=== PATIENT | female | born 1950 | race Caucasian/White ===

== ENCOUNTER → 2020-05-25 12:40 | Outpatient (CLI) | payer MEDICARE, SELFPAY ==
--- NOTE | ~2020-05-25 | MM_ITS ---
EXAMINATION: MM screening yael BI w akiko HISTORY: Screening TECHNIQUE: Craniocaudal and mediolateral oblique 3-D tomosynthesis images were obtained and synthetic 2-D images were generated. CAD analysis was submitted and interpreted. COMPARISON: Comparison to multiple prior studies sequentially, with oldest reviewed study dated 01/25. BREAST PARENCHYMAL COMPOSITION: The breasts are almost entirely fatty. FINDINGS: There is no evidence of suspicious mass, calcification, or architectural distortion to sugg est malignancy in either breast. There has been no suspicious interval change. IMPRESSION: 1. No mammographic evidence of malignancy. 2. Recommend routine screening mammography in one year. BI-RADS Category 1: Negative Reviewed, dictated and finalized at [facility]
== END ==
PROVIDERS: PCP Family Medicine; Visit Provider Physician Assistant Medical
DX: Z12.31 Encounter for screening mammogram for malignant neoplasm of breast (principal)
CPT/HCPCS: 77063; 77067

== ENCOUNTER 2020-07-08 08:16 | Outpatient (CLI) | payer MEDICARE, SELFPAY ==
--- NOTE | 2020-07-08 08:52 | ECG_ITS ---
SINUS BRADYCARDIA DELAYED PRECORDIAL R/S TRANSITION BASELINE ARTIFACT- I, II, III, AVR, AVL, AVF BORDERLINE ECG Electronically Signed On 07-08-2020 9:20:16 CDT by Lorenzo Barraza D.O. COMPARED TO ECG 07/30/2018 14:22:17 SINUS BRADYCARDIA NOW PRESENT MTDD
[2020-07-08 09:51] LABS: Basophils Percent Auto 0.6 % (0.2-1.2); Eosinophils Absolute Auto 0.2 K/mm3 (0-0.3); Eosinophils Percent Auto 3.3 % (0-4.4); Hematocrit 39.4 % (37.0-47.0); Hemoglobin 13.5 g/dL (12.0-15.0); Immature Granulocyte Absolute 0.01 K/mm3 (0.00-0.031); Immature Granulocyte Percent A 0.2 % (0-0.5); Lymphocytes Absolute Auto 1.69 K/mm3 (0.9-3.2); Lymphocytes Percent Auto 31.1 % (18.3-44.2); Mean Corpuscular HGB Conc 34.3 g/dl (32-36); Mean Corpuscular Hemoglobin 33.3 pg (26-34); Mean Corpuscular Volume 97.3 fl (80-100); Mean Platelet Volume 10.6 fl (7.4-10.4); Monocytes Absolute Auto 0.4 K/mm3 (0.1-0.6); Monocytes Percent Auto 7.7 % (2.6-8.5); Neutrophils Absolute Auto 3.1 K/mm3 (1.3-6.7); Neutrophils Percent Auto 57.1 % (45.5-73.1); Platelet Count Result 186 k/mm3 (150-375); Red Blood Count 4.05 M/mm3 (4.2-5.4); Red Cell Distribution Width 12.7 % (11.5-14.5); White Blood Count 5.4 K/mm3 (4.5-10.0)
[2020-07-08 10:02] LABS: Anion Gap 5 mmol/L (8-16); Blood Urea Nitrogen 19 mg/dL (7-17); Calcium 9.3 mg/dL (8.4-10.2); Carbon Dioxide 32 mmol/L (22-30); Chloride 102 mmol/L (98-107); Estimated Glomerular Filt Rate > 60; Glucose 93 mg/dL (65-105); Potassium 4.3 mmol/L (3.4-5.0); Sodium 139 mmol/L (137-145)
== END 2020-07-08 08:17 | disposition home or self-care (01) ==
PROVIDERS: PCP Family Medicine; Visit Provider Orthopaedic Surgery
DX: M20.5X1 Other deformities of toe(s) (acquired), right foot (principal); M89.8X7 Other specified disorders of bone, ankle and foot
CPT/HCPCS: 36415; 80048; 85025; 93005

== ENCOUNTER 2020-07-08 08:44 | Outpatient (CLI) | payer MEDICARE, SELFPAY ==
[2020-07-08 10:02] LABS: Alanine Aminotransferase 17 U/L (4-35); Albumin Level 4.5 g/dL (3.5-5.1); Alkaline Phosphatase 64 U/L (38-126); Anion Gap 5 mmol/L (8-16); Aspartate Amino Transferase 30 U/L (14-36); Bilirubin,Total 0.6 mg/dL (0.2-1.3); Blood Urea Nitrogen 20 mg/dL (7-17); Calcium 9.2 mg/dL (8.4-10.2); Carbon Dioxide 32 mmol/L (22-30); Chloride 103 mmol/L (98-107); Cholesterol 195 mg/dL (0-200); Estimated Glomerular Filt Rate > 60; Glucose 94 mg/dL (65-105); HDL Direct 61 mg/dL; Potassium 4.3 mmol/L (3.4-5.0); Sodium 140 mmol/L (137-145); Triglycerides 122 mg/dL (<150)
[2020-07-08 10:12] LABS: LDL Cholesterol Direct 104 mg/dL
[2020-07-08 10:29] LABS: Hemoglobin A1C 5.3 % (<5.7)
[2020-07-08 10:46] LABS: Free T4 Free Thyroxine 0.99 ng/mL (0.78-2.19)
== END 2020-07-08 08:45 | disposition home or self-care (01) ==
LOC: ANHLAB 08:49
PROVIDERS: PCP Family Medicine; Visit Provider Family Medicine
DX: E03.9 Hypothyroidism, unspecified (principal); E78.5 Hyperlipidemia, unspecified; I10 Essential (primary) hypertension; E88.81 Metabolic syndrome and other insulin resistance
CPT/HCPCS: 36415; 80053; 80061; 83036; 84439; 84443

== ENCOUNTER → 2020-07-11 01:50 | Outpatient (CLI) | payer MEDICARE, SELFPAY ==
[2020-07-11 19:04] LABS: SARS-CoV-2 RNA PCR Negative
== END ==
PROVIDERS: PCP Family Medicine; Visit Provider Orthopaedic Surgery
DX: Z01.812 Encounter for preprocedural laboratory examination (principal); Z20.822 Contact with and (suspected) exposure to COVID-19
CPT/HCPCS: C9803; U0003; U0005

== ENCOUNTER 2020-07-14 01:45 | Day surgery (SDC) | payer MEDICARE, SELFPAY ==
[2020-07-01 12:06] VITALS: BMI 38.6
--- NOTE | 2020-07-13 13:19 | WPDANESEPPF ---
Anes - Initial Pre Proc Eval Procedure: Operation Date: 07/14/20 08:00 Proposed Procedures p Right Second Claw Toe Correction With Metatarsal Osteotomy, Soft Tissue Reconstruction, Excision Of Exostosis - Rafita Calles MD Date/Time: 07/13/20 13:19 Surgeon: Rafita Calles MD Pre Op Diagnosis: Right 2nd claw toe, right foot exostosis Patient Data Age: 70 Gender: F Height: 5 ft 3 in Weight: 98.9 kg Allergies Allergy/AdvReac Type Severity Reaction Status Date / Time nabumetone Allergy Mild vision Verified 07/14/20 06:37 changes Home Medications Medication Instructions Recorded Confirmed Type alendronate 70 mg tablet 70 mg PO WEEKLY #13 tablet 09/16/19 07/14/20 Rx rosuvastatin 10 mg tablet 10 mg PO DAILY #90 tablet 12/28/19 07/14/20 Rx acetaminophen 300 mg-codeine 30 mg 1 tablet PO Q8H PRN #30 tablet 02/12/20 07/01/20 Rx tablet melatonin 10 mg capsule 10 mg PO PRN PRN cap 02/12/20 07/14/20 History methotrexate sodium 2.5 mg tablet 17.5 mg PO WEEKLY tablet 02/12/20 07/14/20 History lisinopril 10 mg tablet See Rx Instructions .ROUTE 02/29/20 07/14/20 Rx .COMPLEX #90 tablet levothyroxine 100 mcg tablet 100 mcg PO DAILY #90 tablet 03/16/20 07/14/20 Rx hydrochlorothiazide 25 mg tablet See Rx Instructions .ROUTE 06/10/20 07/14/20 Rx .COMPLEX #90 tablet aspirin [Adult Low Dose Aspirin] 162 mg PO DAILY 07/01/20 07/14/20 History citalopram 20 mg PO QAM 07/01/20 07/14/20 History diphenhydramine-acetaminophen 25 - 500 ml PO PRN PRN 07/01/20 07/14/20 History [Tylenol PM] folic acid 5 mg PO WEEKLY 07/01/20 07/14/20 History meloxicam 15 mg tablet 15 mg PO DAILY #90 tablet 07/08/20 07/14/20 Rx Patient hx anesthesia problems: post op nausea/vomiting Family hx anesthesia problems: none PMFSH Past Medical History Medical History (Updated 07/13/20 @ 13:19 by Arnaud Braden MD) Arthritis Arthritis of foot, right, degenerative Clawtoe, acquired Essential (primary) hypertension Exostosis of right foot Ganglion cyst (~1971) History of chicken pox History of measles History of mumps Hypothyroidism (acquired) Mixed hyperlipidemia Obesity JALIL (obstructive sleep apnea) Unspecified sleep apnea Surgical History Surgical History History of adenoidectomy (~1958) History of back surgery (~2012) History of bunionectomy 1997? History of cataract surgery History of tonsillectomy (~1958) History of tubal ligation (~1979) Family History Family History Mother , age 78 Hypertension Kidney failure Congestive heart failure Father , age 76 Diabetes mellitus Hypertension Lung cancer Alcoholism Heart disease Grandparent Breast cancer Heart disease Daughter Smoker Son Smoker Other Carcinoma of colon Family history of arthritis Social History Social History Smoking status: Never smoker Alcohol intake: current Drinks per week: 2 Living arrangements: with family Spiritual care concerns: No Anes - Eval Final PreProcedure Day of Procedure 07/13/20 13:19 Patient weight: morbidly obese Heart: regular rate and rhythm Lungs: clear to auscultation Airway: Mallampati scale class III Neurological: alert and oriented Last oral intake: >/= 8 hours ASA classification: III Emergent: no Anesthesia type and monitoring: general LMA and standard monitoring Informed Consent: The patient's anesthetic plan and its attendant risks and benefits were discussed with the patient/family/POA. Questions were solicited and answers provided to the satisfaction of the patient/family/POA.
[2020-07-14] VITALS (8 sets, daily range): BP systolic 125–139; BP diastolic 55–74; PULSE 63–88; RESP 13–18; TEMP 36–36.2; O2SAT 98–100
--- NOTE | ~2020-07-14 | XR_ITS ---
EXAMINATION: XR surgery orthopedic DATE: 07/14/2020 10:37 INDICATION: Follow-up to surgery at the right foot. TECHNIQUE: 3 fluoroscopic spot images of the right forefoot were obtained during procedure performed by Dr. Calles. Radiologist was not present for the imaging or procedure. The amount of fluoroscopy t layla used during this procedure was 0.1 minutes. COMPARISON: 06/15/2020 FINDINGS: Interval osteotomy and screw fixation at the neck of the right second metatarsal. Round lucency at th e base of the second proximal phalanx likely represents a suture anchor tract. Postoperative change o f prior bunionectomy with irregular cortical margins at the medial head of the first metatarsal. Poly articular osteoarthritis, mild at the first metatarsophalangeal joint and moderate severity at multip le interphalangeal joints. No fracture. IMPRESSION: 1. Postoperative changes at the head of the second metatarsal and base of the second proximal phalanx likely for reported claw toe correction. See procedure note for further detail. 2. Mild to moderate polyarticular osteoarthritis in the forefoot. Reviewed, dictated and finalized at location A. IMPRESSION: 1. Postoperative changes at the head of the second metatarsal and base of the s econd proximal phalanx likely for reported claw toe correction. See procedure n ote for further detail. 2. Mild to moderate polyarticular osteoarthritis in the forefoot.
[2020-07-14] MEDS: ACETAMINOPHEN 500 MG TABLET 1000 MG PO (06:46)
[2020-07-14] MEDS: LACTATED RINGERS 1,000 ML 30 ML IV CONT ×2 (07:23→10:47)
[2020-07-14] MEDS: SCOPOLAMINE 1.5 MG PATCH TRANSDERM (07:25)
--- NOTE | 2020-07-14 08:39 | WPDHPUPDATE1 ---
History and Physical Update Update Date/Time: 07/14/20 08:39 History and Physical has been reviewed, including an updated exam of the patient. There are NO changes in the patient's condition. Covid test negative. Risks, benefits, and alternatives have been discussed and questions answered. Patient agrees to proceed with procedure.
[2020-07-14] MEDS: ceFAZolin 2 GM/D5W 50 ML 2 GM/50 ML BAG IVPB (08:42)
[2020-07-14] MEDS: BUPIVACAINE HCL 0.5% PF 30 ML VIAL INFILTRATE (09:11)
--- NOTE | 2020-07-14 11:13 | PM.PROC ---
Procedure Note - Detailed Date of procedure: 07/14/20 Pre-op diagnosis: Right 2nd claw toe, right foot exostosis Post-op diagnosis: same Procedure performed: Right 2nd metatarsal osteotomy, clawtoe correction with soft tissue reconstruction, excision of exostosis Description of procedure: Patient is a 70-year-old woman with a right 2nd crossover toe deformity with evidence of plantar plate rupture on x-ray as well as metatarsalgia and excessively long 2nd ray. Medial exostosis from the medial cuneiform which causes pain with shoe wear. Patient has failed conservative treatment and desires operative treatment. Risks, benefits and alternatives discussed with the patient. Questions answered. Patient would like to proceed with surgery. What was done: After informed consent was given the operative extremity was marked in the preoperative holding area. Patient received intravenous antibiotics. She was brought to the operating room where she underwent a general anesthetic by the anesthesia team. Time-out performed confirming the patient, site of the surgery, operative plan. The right lower extremity was then prepped and draped in usual sterile surgical fashion using ChloraPrep skin solution. Foot and ankle exsanguinated and a calf tourniquet inflated to 225 mmHg. Dorsal approach utilized and longitudinal incision made with 15 blade knife centered over the 2nd metatarsophalangeal joint. Hemostasis controlled with electrocautery. Extensor tendon retracted laterally. Dorsal capsulotomy performed. Synovitis and joint fluid noted in the joint. This was sharply removed and suctioned out. Collaterals released off of the proximal phalanx. Joint inspected and a plantar plate rupture noted. Proximal plantar plate released with the McGlamry elevator. Plantar condyle removed with a rongeur. Sagittal saw used to make transverse osteotomy in the metatarsal head. This allowed the head to shorten to correct the excessive length of the metatarsal. Positioning verified with image intensification. Fixation achieved with a 2.0 mm twist off screw from Arthrex set. Plantar plate reconstruction then performed. Plantar plate was noted to be thin and attenuated secondary to patient's age. Reconstruction with internal brace was indicated. Drill holes placed in the proximal phalanx and suture tape brought up through the drill holes. With the toe in corrected position suture tape was then passed from plantar to dorsum through the midportion of the 2nd metatarsal. Fixation of the suture tape was achieved with the bio tenodesis screw distally in the PushLock anchor proximally. Image intensification confirmed final alignment of the toe at the metatarsophalangeal joint. Visualization clinically showed good alignment of the toe. Wound thoroughly irrigated with antibiotic solution. Capsule repaired with 3 0 Monocryl interrupted suture. Skin repaired with 4 0 nylon interrupted suture. Exostosis then addressed. A longitudinal incision made with 15 blade knife over the medial cuneiform. Hemostasis controlled electrocautery. Soft tissue elevated off of the large exostosis which was present. Osteotome used to remove the exostosis and smoothed with a rongeur. Wound thoroughly irrigated. Subcutaneous tissue repaired with 3 Monocryl interrupted suture and skin repaired with for 0 nylon running suture. Sterile dressing applied. Tourniquet released. Good capillary refill noted in the toe. Patient awoke from anesthesia, extubated and taken to the recovery room in stable condition. All sponge, needle, instrument counts correct at the end of the case. Implants: Arthrex 2.0 mm twist off screw 12 mm length x1, 3.0 mm bio tenodesis screw x1, 2.5 mm PushLock anchor x1 Anesthesia: GLMA Surgeon: Rafita Calles MD Radio Assembler: sales assistants and salespersons Estimated blood loss (mL): 5 Tourniquet time (min): 95 Drains: No Packing: No Pathology: none sent Complications: None Condition: stable Disposition: PACU
== END 2020-07-14 12:55 | disposition home or self-care (01) ==
PROVIDERS: PCP Family Medicine; Visit Provider Orthopaedic Surgery
PROC: (CPT 28750; principal; 2020-07-14 08:00)
DX: M20.5X1 Other deformities of toe(s) (acquired), right foot (principal); M25.774 Osteophyte, right foot; M77.41 Metatarsalgia, right foot; M65.871 Other synovitis and tenosynovitis, right ankle and foot; I10 Essential (primary) hypertension; E78.2 Mixed hyperlipidemia; G47.33 Obstructive sleep apnea (adult) (pediatric); E66.01 Morbid (severe) obesity due to excess calories; Z68.39 Body mass index [BMI] 39.0-39.9, adult
CPT/HCPCS: 28104; 28308; 28313; 36415; 80048; 80053; 80061; 83036; 84439; 84443; 85025; 93005; A9270; C1713; C9803; J0690; J1100; J2405; J2704; J3010; J7120; U0003; U0005

== ENCOUNTER 2020-11-11 16:45 | Outpatient (CLI) | payer MEDICARE, SELFPAY ==
--- NOTE | ~2020-11-11 | MR_ITS ---
EXAMINATION: MR lumbar spine wo/w con DATE: 11/11/2020 17:47 INDICATION: Lumbar radiculopathy. TECHNIQUE: Magnetic resonance imaging (MRI) of the lumbar spine was performed without and with 20 mL MultiHance intravenous contrast. Sequences included sagittal T2-weighted FSE, sagittal T2-weighted FS FSE, and sagittal and axial T1-weighted FSE. Postcontrast sequences included axial T2-weighted FSE a nd axial and sagittal T1-weighted FS FSE. COMPARISON: Lumbar spine MRI 08/21/2016 FINDINGS: There is 5 degrees levocurvature of lumbar spine. There is 6 mm anterolisthesis of L4 on L5 . There are changes of anterior and posterior fusion procedures at L4-L5 with healed interbody bone g raft and pedicle screws. There is severely decreased disc height at L3-L4 and L5-S1 with endplate rem odeling. The distal spinal cord signal intensity is normal. The conus medullaris is at T12-L1. The fo llowing disc levels are specifically discussed: L1-L2: The disc is bulging. There is mild bilateral facet joint osteoarthritis. There is no neural fo raminal stenosis. There is mild central canal stenosis. L2-L3: The disc does not extend beyond the endplate margin. There is mild bilateral facet joint osteo arthritis. There is no neural foraminal stenosis. There is no central canal stenosis. L3-L4: The disc is bulging. There is severe bilateral facet joint osteoarthritis. There is moderate b ilateral neural foraminal stenosis. There is mild central canal stenosis. L4-L5: There is no facet joint hypertrophy. There is no neural foraminal stenosis. There is no centra l canal stenosis. There is posterior decompression. L5-S1: The disc is bulging and has an annular fissure. There is severe bilateral facet joint osteoart hritis. There is moderate right and mild left neural foraminal stenosis. There is mild central canal stenosis. IMPRESSION: 1. Severe lumbar spondylosis with interval worsening of right neural foraminal stenosis at L5-S1. 2. Anterior and posterior fusion procedures at L4-L5. Reviewed, dictated and finalized at location [facility].
[2020-11-11 17:11] LABS: Estimated Glomerular Filt Rate > 60
== END 2020-11-11 16:46 | disposition home or self-care (01) ==
PROVIDERS: PCP Family Medicine; Visit Provider Nurse Practitioner Family
DX: M54.5 Low back pain (principal); M47.816 Spondylosis without myelopathy or radiculopathy, lumbar region; M48.07 Spinal stenosis, lumbosacral region; Z98.1 Arthrodesis status
CPT/HCPCS: 72158; A9577

== ENCOUNTER 2021-06-05 00:14 | Day surgery (SDC) | payer MEDICARE, SELFPAY ==
[2021-05-26 09:41] VITALS: BMI 39.0
[2021-06-05 09:55] VITALS: BP 136/63; PULSE 70; RESP 16; TEMP 35.8; O2SAT 97; BMI 38.2
[2021-06-05] MEDS: LACTATED RINGERS 1,000 ML 150 ML IV CONT (10:00)
--- NOTE | 2021-06-05 10:01 | WPDANESEPPF ---
Anes - Initial Pre Proc Eval Procedure: Operation Date: 06/05/21 11:00 Proposed Procedures p Screening Colonoscopy - Nilesh Kowalski MD Date/Time: 06/05/21 10:01 Surgeon: Nilesh Kowalski MD Pre Op Diagnosis: family hx of colon polyps Patient Data Age: 71 Gender: F Height: 1.6 m Weight: 97.8 kg Last Vital Signs Temp 35.8 C L 06/05/21 09:55 Pulse 70 06/05/21 09:55 Resp 16 06/05/21 09:55 BP 136/63 06/05/21 09:55 Pulse Ox 97 06/05/21 09:55 Allergies Allergy/AdvReac Type Severity Reaction Status Date / Time nabumetone Allergy Mild vision Verified 06/05/21 09:53 changes Home Medications Medication Instructions Recorded Confirmed Type melatonin 10 mg capsule 10 mg PO PRN PRN cap 02/12/20 06/05/21 History hydrochlorothiazide 25 mg tablet See Rx Instructions .ROUTE 06/10/20 06/05/21 Rx .COMPLEX #90 tablet aspirin 162 mg PO DAILY 07/01/20 06/05/21 History citalopram 20 mg PO QAM 07/01/20 06/05/21 History diphenhydramine-acetaminophen 25 - 500 ml PO PRN PRN 07/01/20 06/05/21 History folic acid 5 mg PO WEEKLY 07/01/20 06/05/21 History alendronate 70 mg tablet 70 mg PO WEEKLY #13 tablet 08/09/20 06/05/21 Rx methotrexate sodium 2.5 mg tablet See Rx Instructions .ROUTE 08/15/20 06/05/21 Rx .COMPLEX #90 tablet tramadol 50 mg tablet 50 mg PO Q6H PRN #30 tablet 02/15/21 06/05/21 Rx lisinopril 10 mg tablet See Rx Instructions .ROUTE 02/27/21 06/05/21 Rx .COMPLEX #90 tablet levothyroxine 100 mcg tablet 100 mcg PO DAILY #90 tablet 03/13/21 06/05/21 Rx rosuvastatin 10 mg tablet See Rx Instructions .ROUTE 03/27/21 06/05/21 Rx .COMPLEX #90 tablet metformin 500 mg tablet,extended See Rx Instructions .ROUTE 04/19/21 06/05/21 Rx release 24 hr .COMPLEX #90 tablet meloxicam 15 mg tablet 15 mg PO DAILY #90 tablet 04/24/21 06/05/21 Rx Lacto.acidophilus-Bif.animalis 1 cap PO DAILY 05/26/21 06/05/21 History [Daily Probiotic] acetaminophen [Tylenol Arthritis] 650 mg PO Q12H PRN 05/26/21 06/05/21 History famotidine [Pepcid] 20 mg PO DAILY PRN 05/26/21 06/05/21 History sennosides [senna] 8.6 mg PO DAILY PRN 05/26/21 06/05/21 History turmeric root extract 500 mg PO DAILY 05/26/21 06/05/21 History Patient hx anesthesia problems: none Family hx anesthesia problems: none Results Review: All pre-operative results and documents have been reviewed as part of the pre-operative evaluation. [facility] Past Medical History Medical History Arthritis Arthritis of foot, right, degenerative Clawtoe, acquired Essential (primary) hypertension Exostosis of right foot Ganglion cyst (~1971) History of chicken pox History of measles History of mumps Hypothyroidism (acquired) Mixed hyperlipidemia Obesity JALIL (obstructive sleep apnea) Unspecified sleep apnea Surgical History Surgical History History of adenoidectomy (~1958) History of back surgery (~2012) History of bunionectomy 1997? History of cataract surgery History of tonsillectomy (~1958) History of tubal ligation (~1979) Family History Family History Mother , age 78 Hypertension Kidney failure Congestive heart failure Father , age 76 Heart disease Diabetes mellitus Hypertension Lung cancer Alcoholism Grandparent Breast cancer Heart disease Daughter Smoker Son Smoker Other Carcinoma of colon Family history of arthritis Social History Social History Second hand tobacco smoke exposure: No Alcohol intake: current Drinks per week: 2 Substance use: unknown Spiritual care concerns: No Anes - Eval Final PreProcedure Day of Procedure 06/05/21 10:01 Patient weight: obese Heart: regular rate and rhythm Lungs: clear to auscultation Airway: Mallampati scale class II Neurologic
--- NOTE | 2021-06-05 10:21 | WPDGICN ---
Assessment and Plan Assessment and plan (1) Family history of colonic polyps: Code(s): Z83.71 - Family history of colonic polyps Status: Acute Assessment and Plan: Patient has a family history of colon polyps in her brother. Additionally an aunt had colon cancer. For this reason surveillance colonoscopy has been advised every 5-7 years. GI Consult Note Consult date/time: 06/05/21 10:21 HPI: Isabel Sy is a 71 year old female Presents for screening colonoscopy. Patient's current weight appetite and bowel movements are normal. She denies abdominal pain. She has had no bleeding. Family history is significant that her brother had colon polyps. Her aunt had colon cancer. Patient's last colonoscopy 2014 was unremarkable. Patient currently reports normal bowel movements. Review of Systems Review of Systems: All systems reviewed & are unremarkable except as noted in HPI and below PMFSH Past Medical History Medical History Arthritis Arthritis of foot, right, degenerative Clawtoe, acquired Essential (primary) hypertension Exostosis of right foot Ganglion cyst (~1971) History of chicken pox History of measles History of mumps Hypothyroidism (acquired) Mixed hyperlipidemia Obesity JALIL (obstructive sleep apnea) Unspecified sleep apnea Surgical History Surgical History History of adenoidectomy (~1958) History of back surgery (~2012) History of bunionectomy 1997? History of cataract surgery History of tonsillectomy (~1958) History of tubal ligation (~1979) Family History Family History Mother , age 78 Hypertension Kidney failure Congestive heart failure Father , age 76 Heart disease Diabetes mellitus Hypertension Lung cancer Alcoholism Grandparent Breast cancer Heart disease Daughter Smoker Son Smoker Other Carcinoma of colon Family history of arthritis Social History Social History Second hand tobacco smoke exposure: No Alcohol intake: current Drinks per week: 2 Substance use: unknown Spiritual care concerns: No Meds Home Medications and Allergies Home Medications Medication Instructions Recorded Confirmed Type melatonin 10 mg capsule 10 mg PO PRN PRN cap 02/12/20 06/05/21 History hydrochlorothiazide 25 mg tablet See Rx Instructions .ROUTE 06/10/20 06/05/21 Rx .COMPLEX #90 tablet aspirin 162 mg PO DAILY 07/01/20 06/05/21 History citalopram 20 mg PO QAM 07/01/20 06/05/21 History diphenhydramine-acetaminophen 25 - 500 ml PO PRN PRN 07/01/20 06/05/21 History folic acid 5 mg PO WEEKLY 07/01/20 06/05/21 History alendronate 70 mg tablet 70 mg PO WEEKLY #13 tablet 08/09/20 06/05/21 Rx methotrexate sodium 2.5 mg tablet See Rx Instructions .ROUTE 08/15/20 06/05/21 Rx .COMPLEX #90 tablet tramadol 50 mg tablet 50 mg PO Q6H PRN #30 tablet 02/15/21 06/05/21 Rx lisinopril 10 mg tablet See Rx Instructions .ROUTE 02/27/21 06/05/21 Rx .COMPLEX #90 tablet levothyroxine 100 mcg tablet 100 mcg PO DAILY #90 tablet 03/13/21 06/05/21 Rx rosuvastatin 10 mg tablet See Rx Instructions .ROUTE 03/27/21 06/05/21 Rx .COMPLEX #90 tablet metformin 500 mg tablet,extended See Rx Instructions .ROUTE 04/19/21 06/05/21 Rx release 24 hr .COMPLEX #90 tablet meloxicam 15 mg tablet 15 mg PO DAILY #90 tablet 04/24/21 06/05/21 Rx Lacto.acidophilus-Bif.animalis 1 cap PO DAILY 05/26/21 06/05/21 History [Daily Probiotic] acetaminophen [Tylenol Arthritis] 650 mg PO Q12H PRN 05/26/21 06/05/21 History famotidine [Pepcid] 20 mg PO DAILY PRN 05/26/21 06/05/21 History sennosides [senna] 8.6 mg PO DAILY PRN 05/26/21 06/05/21 History turmeric root extract 500 mg PO DAILY 05/26/21 06/05/21 History Allergies Allergy/AdvReac Type Severity
[2021-06-05 10:53] VITALS: BP 97/57; PULSE 59; RESP 13; O2SAT 100
[2021-06-05 11:03] VITALS: BP 101/59; PULSE 61; RESP 15; O2SAT 100
[2021-06-05 11:13] VITALS: BP 116/68; PULSE 60; RESP 17; O2SAT 98
== END 2021-06-05 11:17 | disposition home or self-care (01) ==
PROVIDERS: PCP Family Medicine; Visit Provider Internal Medicine Gastroenterology
PROC: 0DJD8ZZ Inspection of Lower Intestinal Tract, Via Natural or Artificial Opening Endoscopic (ICD-10-PCS; CPT 45378; principal; 2021-06-05 11:00)
DX: Z12.11 Encounter for screening for malignant neoplasm of colon (principal); K64.8 Other hemorrhoids; Z80.0 Family history of malignant neoplasm of digestive organs; Z83.71 Family history of colonic polyps; M19.90 Unspecified osteoarthritis, unspecified site; I10 Essential (primary) hypertension; E03.9 Hypothyroidism, unspecified; G47.33 Obstructive sleep apnea (adult) (pediatric); E78.2 Mixed hyperlipidemia; Z79.82 Long term (current) use of aspirin; Z79.84 Long term (current) use of oral hypoglycemic drugs; E66.9 Obesity, unspecified; Z68.38 Body mass index [BMI] 38.0-38.9, adult
CPT/HCPCS: G0105; J2001; J2704; J7120

== ENCOUNTER 2021-06-17 14:41 | Emergency (ER) | payer MEDICARE, SELFPAY ==
--- NOTE | ~2021-06-17 | XR_ITS ---
EXAMINATION: XR ankle RT min 3V EXAM DATE: 06/17/2021 15:12 INDICATION: PAIN with dorsiflexion of Rt ankle; fell off porch 1 wk ago . TECHNIQUE: Right ankle frontal, lateral and oblique projections obtained and reviewed. Correlation is made to right foot x-ray from 09/13/20. FINDINGS: The right ankle mortise appears intact. There are no acute fractures or dislocations iden tified. There is no subcutaneous gas. The soft tissue is unremarkable. There are no radiopaque fo reign bodies. There is advanced tarsometatarsal joints osteoarthritis. IMPRESSION: XR ankle RT min 3V exam without acute osseous findings. Reviewed, dictated and finalized at location G.
[2021-06-17 14:56] VITALS: BP 136/68; PULSE 71; RESP 16; TEMP 36.9; O2SAT 100
--- NOTE | 2021-06-17 15:27 | ED.LOWEXIN ---
HPI - Extremity Injury (Lower) General Chief Complaint: Extremity Injury, Lower Stated Complaint: INJURED R ANKLE Time Seen by Provider: 06/17/21 15:20 Source: patient, RN notes reviewed and old records reviewed Mode of arrival: ambulatory Limitations: no limitations History of Present Illness HPI Narrative: 71 year old female who presents to [facility] care with complaints of right medial ankle pain after fall off of her porch one week ago. She reports that she remembers some twisting type of motion when she missed step and [facility] Patient reports that she has arthritis all over and she knows she probably has it in her foot and ankle also. No acute swelling to her right foot noted or any bruising, patient does have point tenderness to anterior medial aspect of her ankle. Patient states that pain is increased with hyperflexion of foot and weight bearing. MD complaint: ankle injury (medial anterior ankle area ) Onset (ago): week(s) (1) Injury: Right: ankle (medial anterior ankle) Type of Injury: other (twisting) Place: home Severity: moderate Severity scale (1-10): 7 Relieving factors: cold therapy Treatments prior to arrival: cold therapy and other (Tylenol) Related Data Home Medications Medication Instructions Recorded Confirmed melatonin 10 mg capsule 10 mg PO PRN PRN cap 02/12/20 06/17/21 aspirin 162 mg PO DAILY 07/01/20 06/17/21 citalopram 20 mg PO QAM 07/01/20 06/17/21 diphenhydramine-acetaminophen 25 - 500 ml PO PRN PRN 07/01/20 06/17/21 folic acid 5 mg PO WEEKLY 07/01/20 06/17/21 Lacto.acidophilus-Bif.animalis 1 cap PO DAILY 05/26/21 06/17/21 [Daily Probiotic] acetaminophen [Tylenol Arthritis] 650 mg PO Q12H PRN 05/26/21 06/17/21 famotidine [Pepcid] 20 mg PO DAILY PRN 05/26/21 06/17/21 sennosides [senna] 8.6 mg PO DAILY PRN 05/26/21 06/17/21 turmeric root extract 500 mg PO DAILY 05/26/21 06/17/21 Allergies Allergy/AdvReac Type Severity Reaction Status Date / Time nabumetone Allergy Mild vision Verified 06/17/21 14:50 changes Review of Systems Review of Systems: CONSTITUTIONAL: Denies fever, chills, or sweats. EYES: Denies visual changes, redness, or discharge. ENT: Denies rhinorrhea, congestion, sore throat, or otalgia. CARDIOVASCULAR: Denies chest pain, palpitations, or edema. RESPIRATORY: Denies cough or dyspnea. GASTROINTESTINAL: Denies abdominal pain, nausea, vomiting, or diarrhea. GENITOURINARY: Denies dysuria or hematuria. SKIN: Denies rash or itching. MUSCULOSKELETAL: Chronic back pain, right medial anterior ankle point pain, or myalgia. NEUROLOGIC: Denies headache, numbness, or weakness. PSYCHIATRIC: Positive for history of anxiety or depression. All systems reviewed & are unremarkable except as noted in HPI and below PMFSH Past Medical History Medical History Arthritis Arthritis of foot, right, degenerative Clawtoe, acquired Essential (primary) hypertension Exostosis of right foot Ganglion cyst (~1971) History of chicken pox History of measles History of mumps Hypothyroidism (acquired) Mixed hyperlipidemia Obesity JALIL (obstructive sleep apnea) Unspecified sleep apnea Surgical History Surgical History History of adenoidectomy (~1958) History of back surgery (~2012) History of bunionectomy 1997? History of cataract surgery History of tonsillectomy (~1958) History of tubal ligation (~1979) Family History Family History Mother , age 78 Hypertension Kidney failure Congestive heart failure Father , age 76 Heart disease Diabetes mellitus Hypertension Lung cancer Alcoholism Grandparent Breast cancer Heart disease Daughter Smoker Son Smoker Other Carcinoma of colon Family history of arthritis Social History Social History (Reviewed 06/05/21 @ 10:01 by Daljit
== END 2021-06-17 15:55 | disposition home or self-care (01) ==
PROVIDERS: Emergency Provider Registered Nurse; PCP Family Medicine
DX: S93.601A Unspecified sprain of right foot, initial encounter (principal); W17.89XA Other fall from one level to another, initial encounter; M19.071 Primary osteoarthritis, right ankle and foot; I10 Essential (primary) hypertension; E03.9 Hypothyroidism, unspecified; E78.2 Mixed hyperlipidemia; G47.33 Obstructive sleep apnea (adult) (pediatric); G47.30 Sleep apnea, unspecified
CPT/HCPCS: 73610; 99213; G0463

== ENCOUNTER 2022-01-17 08:03 | Outpatient (CLI) | payer MEDICARE, SELFPAY ==
--- NOTE | 2022-02-05 11:28 | WPDSLEEPSTUD ---
Sleep Study Date of Study: 01/17/22 Ordering Provider: Obi Noriega MD Interpreting Physician: Lakeisha Ac MD Sleep Study Type: Split Polysomnogram Height: 1.6 m Weight: 98.883 kg Body Mass Index: 38.6 Neck Circumference (inches): 16.5 [place]: 5 Reason for Sleep Study known obstructive sleep apnea, use of CPAP * August 23, 2015, split night study; moderate obstructive sleep apnea, AHI 27.2, desaturation, moderate snoring. CPAP 11 cm optimal pressure. BMI was 41.6. * Mar 19, 2007; split night study: Mild AHI 5.2 mainly in REM, optimal CPAP 10 cm. BMI was 39.1. Sleep History Isabel Olvera is 72-year-old female with obstructive sleep apnea, last study was 2015. She has used CPAP up to the present, however does not havecomplinace data. For this reason, she is having a split night instead of a full night titration. She does not awaken from sleep feeling short of breath. She occasionally awakens at night with heartburn. She occasionally snores and occasionally this is loud enough that others complain about it. She occasionally has trouble sleeping with a cold. She does not wake up gasping for breath at night, does not sweat excessively at night or notice her heart pounding or beating irregularly at night. She does not fall asleep during the day. She does not fall asleep involuntarily or while driving. She does not have loss of muscle tone with strong emotion. She does not have daytime difficulties due to excessive sleepiness. She denies feeling paralyzed on waking or falling asleep. She does not have vivid dreamlike scenes on waking or falling asleep. She does not feel afraid to go to sleep. She does not have nightmares. She rarely remembers her dreams. She occasionally has racing thoughts. She rarely feels sad or depressed. She occasionally has anxiety. She frequently has muscular tension. She occasionally notices parts of her body jerking and she occasionally kicks at night. She rarely has crawling and aching feelings in her legs. She rarely has any kind of leg pain at night. She rarely has morning jaw pain and rarely grinds her teeth during sleep. She rarely is bothered by pain during the day. She rarely is awakened by pain at night. She rarely wakes up feeling stiff in the morning with sore achy muscles. She has acid reflux at time and takes antacids at night time for this reason. She take sedatives. Normal bedtime 11:00 p.m., falls asleep quickly using Tylenol p.m.. She wakes 2-3 times on an average night, sometimes is not able to return to sleep for an hour. While awake at night, she may go to the bathroom, watch television or read, and sometimes plays on her phone. She wakes the morning between 8:30 a.m. and 9:00 a.m.. Her weekend schedule is the same. On days that she works she wakes at 6:00 a.m.. She does not work often any longer. She estimates getting 8 hours of sleep at night. She takes naps in the afternoon or evening if her back is giving her pain. Naps are short. A short nap may be refreshing. She feels better in the morning compared to other times of day. She frequently awakens feeling refreshed. Habits: Caffeine 2 servings per day. Occasional alcohol. [facility] Past Medical History Medical History Arthritis Arthritis of foot, right, degenerative Clawtoe, acquired Essential (primary) hypertension Exostosis of right foot Ganglion cyst (~1971) History of chicken pox History of measles History of mumps Hypothyroidism (acquired) Mixed hyperlipidemia Obesity JALIL (obstructive sleep apnea) Unspecified sleep apnea Surgical History Surgical History History of adenoidectomy (~1958) History of back surgery (~2012) History of bunionectomy 1997? History of cataract surgery History of tonsillectomy (~1958) History of tubal ligation (~1979) Family History Family History (R
[2022-02-05 12:19] VITALS: BMI 38.6
== END 2022-01-18 06:14 | disposition home or self-care (01) ==
LOC: ANHCSM 08:04
PROVIDERS: PCP Family Medicine; Visit Provider Family Medicine
DX: G47.33 Obstructive sleep apnea (adult) (pediatric) (principal); Z68.38 Body mass index [BMI] 38.0-38.9, adult
CPT/HCPCS: 95811

== ENCOUNTER → 2022-05-25 08:37 | Outpatient (CLI) | payer MEDICARE, SELFPAY ==
--- NOTE | ~2022-05-25 | US_ITS ---
Abdominal Sonogram: Real-time sonographic imaging of the abdomen was performed. Clinical History: Abdominal pain Findings: The liver appears mildly echogenic, with no evidence of mass lesion or bile duct dilatatio n. Main portal vein demonstrates normal direction of flow. The spleen is normal in size. There is a 9 mm hyperechoic structure in the spleen. The gallbladder is well distended, and contains apparent ec hogenic stones. No gallbladder wall thickening. The common bile duct measures 3 mm. The visualized p ancreas, aorta, and IVC are unremarkable. The right kidney measures 9.9 cm in length and the left ki dney measures 11.0 cm. There is no hydronephrosis or renal calculus. Impression: Cholelithiasis. Diffuse fatty infiltration of liver. 9 mm hyperechoic splenic lesion. This is nonspecific. Small hemangioma is a consideration. Reviewed, dictated and finalized at [facility]. 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 Diffuse fatty infiltration of liver. 9 mm hyperechoic splenic lesion. This is nonspecific. Small hemangioma is a con sideration.
== END ==
PROVIDERS: PCP Family Medicine; Visit Provider Family Medicine
DX: K80.20 Calculus of gallbladder without cholecystitis without obstruction (principal); K76.0 Fatty (change of) liver, not elsewhere classified; D73.9 Disease of spleen, unspecified; R10.9 Unspecified abdominal pain
CPT/HCPCS: 76700

== ENCOUNTER 2022-06-08 13:27 | Outpatient (CLI) | payer MEDICARE, SELFPAY ==
--- NOTE | 2022-06-08 13:39 | ECG_ITS ---
Measurements Intervals [place] Rate: 67 P: 52 CT: 170 QRS: 6 QRSD: 98 T: 15 QT: 402 QTc: 427 Interpretive Statements SINUS RHYTHM BASELINE ARTIFACT- I, II, III, AVR, AVL, AVF, V3 NORMAL ECG COMPARED TO ECG 07/08/2020 09:15:35 SINUS RHYTHM NOW PRESENT Electronically Signed On 06-08-2022 14:05:49 CDT by Lorenzo Barraza D.O.
[2022-06-08 14:28] LABS: Alanine Aminotransferase 23 U/L (6-35); Albumin Level 4.4 g/dL (3.5-5.1); Alkaline Phosphatase 57 U/L (38-126); Amylase 73 U/L (30-110); Aspartate Amino Transferase 28 U/L (14-36); Bilirubin,Total 0.4 mg/dL (0.2-1.3); Lipase 60 U/L (23-300)
[2022-06-08 14:30] LABS: Anion Gap 6 mmol/L (8-16); Blood Urea Nitrogen 19 mg/dL (7-17); Calcium 9.2 mg/dL (8.4-10.2); Carbon Dioxide 30 mmol/L (22-30); Chloride 99 mmol/L (98-107); Estimated Glomerular Filt Rate > 60; Glucose 100 mg/dL (65-110); Potassium 4.1 mmol/L (3.4-5.0); Sodium 135 mmol/L (137-145)
== END 2022-06-08 13:28 | disposition home or self-care (01) ==
LOC: ANHSURGERY 13:31
PROVIDERS: Anesthesiology; PCP Family Medicine; Visit Provider Surgery
DX: Z01.812 Encounter for preprocedural laboratory examination (principal); Z01.810 Encounter for preprocedural cardiovascular examination; K80.10 Calculus of gallbladder with chronic cholecystitis without obstruction; I10 Essential (primary) hypertension; Z79.899 Other long term (current) drug therapy
CPT/HCPCS: 36415; 80048; 80076; 82150; 83690; 86850; 86900; 86901; 93005

== ENCOUNTER 2022-06-13 01:07 | Day surgery (SDC) | payer MEDICARE, SELFPAY ==
[2022-06-06 14:38] VITALS: BMI 38.3
--- NOTE | 2022-06-06 14:55 | PC.NURSE ---
PRE-OP INSTRUCTIONS, PLEASE READ CAREFULLY Report to the Outpatient Waiting Room, entrance under the green pavilion located off [facility], at time _1030_ on date _06/13/22_. Planned Procedure Time: _1230_. Time changes happen often and if your time is changed the preop area will call you the afternoon before. - You and your visitor will be asked to self-screen and do not enter if you have any COVID symptoms. - Only one visitor is requested with a max of two and NO children visitors are allowed at this time. - The patient visitor may be requested to leave or wait in car when not with patient due to distancing restrictions. - A mask is optional within the hospital at this time. Patients may have clear liquids (water, carbonated beverages, clear teas, apple juice) until 3 hours prior to surgery (0930 AM) with a maximum of 20 ounces. - No food from midnight until time of surgery Take the following medications with a SIP of water the morning of surgery: _LEVOTHYROXINE_ DO NOT STOP ANY OF YOUR OTHER PRESCRIPTION MEDICATIONS PRIOR TO SURGERY ?EXCEPT THE FOLLOWING Medications to discontinue - _ASPIRIN, MELOXICAM, METHOTREXATE PRE DR. EVANS'S INSTRUCTIONS_ Medications to discontinue per ANESTHESIA -_PROBIOTIC, TURMERIC 3 DAYS PRIOR TO SURGERY, Date to take last dose 06/09/22_ Please no make-up, nail ugandan, hairspray, perfume, deodorant, or body powder the day of surgery. No jewelry (including any body piercings) or valuables the day of surgery, leave them at home. Please take a shower or bath the night before, or the morning of, surgery with an antibacterial soap. Wear comfortable, loose fitting clothing. - Jewelry must be removed prior to entering the operating room. Rings and piercings that are not removed may be cut off. - The hospital will not accept responsibility for valuables. - Please leave all valuables, including medications, at home the day of surgery. If you are going home after surgery, a licensed mixer driver must drive you home. - NO public transportation without another adult if you receive anesthesia. - We recommend that an adult stay with you for 24 hours following discharge. - We also recommend that you do not drive, make important decision, drink alcoholic beverages, or take any drugs that were not prescribed by your health care provider for at least 24 hours after your discharge time. Follow any additional instructions given to you from your surgeon. HIBICLENS SHOWER AM OF SURGERY If you or anyone in your household have experienced Covid symptoms in the past week, please notify your surgeon or the nurse liaison at the phone number below for possible testing. Telephone instructions given to _PATIENT_and asked if any additional questions and then verbalized understanding. Patient advised to call surgeon office or pre surgery nurse liaison [phone] if any additional questions.
[2022-06-13] VITALS (9 sets, daily range): BP systolic 106–146; BP diastolic 43–60; PULSE 72–93; RESP 12–20; TEMP 36.6–36.7; O2SAT 98–100
--- NOTE | 2022-06-13 11:00 | WPDANESEPPF ---
Anes - Initial Pre Proc Eval Procedure: Operation Date: 06/13/22 12:30 Proposed Procedures p Laparoscopic Cholecystectomy - Rudy Wiley MD Date/Time: 06/13/22 11:00 Surgeon: Rudy Wiley MD Pre Op Diagnosis: Chronic Cholecystitis with Stones Patient Data Age: 72 Gender: F Height: 1.6 m Weight: 98.6 kg Allergies Allergy/AdvReac Type Severity Reaction Status Date / Time nabumetone AdvReac Mild vision Verified 06/13/22 10:24 changes Home Medications Medication Instructions Recorded Confirmed Type melatonin 10 mg capsule 10 mg PO PRN PRN Insomnia 02/12/20 06/13/22 History aspirin 81 mg tablet 162 mg PO DAILY 07/01/20 06/13/22 History diphenhydramine 25 25 - 500 ml PO PRN PRN Pain 07/01/20 06/13/22 History mg-acetaminophen 500 mg/15 mL oral solution Lactobacillus 1 cap PO DAILY 05/26/21 06/13/22 History acidophilus-Bifidobac.animalis 2.5 billion cell capsule (Daily Probiotic) acetaminophen 650 mg 650 mg PO Q12H PRN Pain 05/26/21 06/13/22 History tablet,extended release sennosides 8.6 mg tablet (senna) 8.6 mg PO DAILY PRN Constipation 05/26/21 06/13/22 History turmeric root extract 500 mg 500 mg PO DAILY 05/26/21 06/13/22 History capsule hydrochlorothiazide 25 mg tablet See Rx Instructions .Route 06/07/21 06/13/22 Rx .COMPLEX #90 tabs famotidine 20 mg tablet (Pepcid) 20 mg PO DAILY Heart Burn 08/09/21 06/13/22 History folic acid 1 mg tablet 5 mg PO WEEKLY #90 tabs 10/26/21 06/13/22 Rx citalopram 20 mg tablet See Rx Instructions .Route 12/21/21 06/13/22 Rx .COMPLEX #90 tabs methotrexate sodium 2.5 mg tablet See Rx Instructions .Route 12/21/21 06/13/22 Rx .COMPLEX #90 tabs meloxicam 15 mg tablet 15 mg PO DAILY #90 tabs 01/22/22 06/13/22 Rx levothyroxine 100 mcg tablet 100 mcg PO DAILY #90 tabs 02/28/22 06/13/22 Rx (Synthroid) lisinopril 10 mg tablet See Rx Instructions .Route 03/12/22 06/13/22 Rx .COMPLEX #90 tabs rosuvastatin 10 mg tablet See Rx Instructions .Route 03/21/22 06/13/22 Rx .COMPLEX #90 tabs metformin 500 mg tablet,extended See Rx Instructions .Route 06/11/22 06/13/22 Rx release 24 hr .COMPLEX #90 tabs Patient hx anesthesia problems: none Family hx anesthesia problems: none Results Review: All pre-operative results and documents have been reviewed as part of the pre-operative evaluation. [facility] Past Medical History Medical History Arthritis Arthritis of foot, right, degenerative Clawtoe, acquired Essential (primary) hypertension Exostosis of right foot Ganglion cyst (~1971) History of chicken pox History of measles History of mumps Hypothyroidism (acquired) Mixed hyperlipidemia Obesity JALIL (obstructive sleep apnea) Seronegative rheumatoid arthritis of multiple sites Unspecified sleep apnea Surgical History Surgical History History of adenoidectomy (~1958) History of back surgery (~2012) History of bunionectomy 1997? History of cataract surgery History of tonsillectomy (~1958) History of tubal ligation (~1979) Family History Family History Mother , age 78 Hypertension Kidney failure Congestive heart failure Father , age 76 Diabetes mellitus Hypertension Lung cancer Alcoholism Heart disease Grandparent Breast cancer Heart disease Daughter Smoker Son Smoker Other Carcinoma of colon Family history of arthritis Social History Social History Smoking status: Never smoker Second hand tobacco smoke exposure: No Alcohol intake: current Drinks per week: 2 Substance use: never Substance use type: does not use Lack of Transportation: No Lack of Food: Never True Current Housing: I Have Housing Concerned About Future Housing: No Difficulty P
[2022-06-13] MEDS: LACTATED RINGERS 1,000 ML 30 ML IV CONT ×2 (11:05→13:07)
[2022-06-13] MEDS: ACETAMINOPHEN 500 MG TABLET 1000 MG PO (11:06)
[2022-06-13] MEDS: KETOROLAC 15 MG/ML VIAL (*BKC) IV PUSH (11:06)
--- NOTE | 2022-06-13 11:10 | WPDHPUPDATE1 ---
History and Physical Update Update Date/Time: 06/13/22 11:10 History and Physical has been reviewed, including an updated exam of the patient. There are NO changes in the patient's condition. Risks, benefits, and alternatives have been discussed and questions answered. Patient agrees to proceed with procedure.
[2022-06-13] MEDS: ceFAZolin 2 GM/D5W 50 ML 2 GM/50 ML BAG IVPB (11:28)
[2022-06-13] MEDS: BUPIVACAINE/EPINEPHRINE 0.25% 50 ML VIAL INFILTRATE (11:53)
--- NOTE | 2022-06-13 12:24 | P.OP_ITS ---
Procedure Note - Detailed Date of Procedure 06/13/22 Pre-op Diagnosis Chronic Cholecystitis with Stones Post-op Diagnosis Same Procedure Performed Laparoscopic cholecystectomy Surgeon Rudy Wiley MD Sorority Supervisor Trinh Tavares [facility] Anesthesia General and Local (0.25% Marcaine with epinephrine) Indications Patient is a 72-year-old woman who has been experiencing postprandial upper abdominal pain particularly worse after fatty meals. She had a gallbladder ultrasound which showed gallstones. She has a strong family history of gallbladder disease. She is taken to surgery now for laparoscopic cholecystectomy. Findings She had chronic inflammation in the gallbladder, stones were noted. There was no biliary ductal dilatation. There was some fatty change in the liver. Description of Procedure The patient was taken to surgery and induced into general anesthesia. The abdomen is prepped and draped. Trocars were placed in the usual fashion using [employer] optical trocars and a 5 mm camera. The gallbladder was decompressed with a laparoscopic aspirator. The cholecystotomy was closed with a Vicryl endoloop. The gallbladder was then freed from adhesions and retracted anterosuperiorly. Dissection was carried out in the cholecystohepatic triangle. The cystic duct and cystic artery were carefully dissected. Gallbladder was dissected off the liver at its lower 3rd. Critical view was achieved. We then securely clipped and divided the cystic duct and cystic artery. The gallbladder was then further dissected free from its peritoneal attachments to the liver. Cautery was used for hemostasis. Once the gallbladder was free, it was placed in an Endo-Catch bag and retrieved through the epigastric 10 11 trocar site. We then replaced the epigastric trocar in reviewed the gallbladder fossa and right upper quadrant. Repeated irrigation and suctioning were performed in the right upper quadrant. All looked good with no evidence of bleeding or bile leakage. We then evacuated CO2 and removed the trocar sleeves. Skin wounds were closed with subcuticular 4-0 Monocryl skin suture. The wounds were dressed with Exofin surgical adhesive. The patient was then awakened and taken to recovery in good condition. Sponge and needle counts were correct x2. Estimated Blood Loss -5 Drains No Packing No Pathology Yes (Gallbladder) Complications No immediate complications Condition Stable Disposition PACU [facility] Billing Surgery - Charge Forward: Surgery Billing (Laparoscopic cholecystectomy)
[2022-06-13] MEDS: ONDANSETRON INJ 4 MG/2 ML VIAL IV PUSH (13:08)
== END 2022-06-13 14:35 | disposition home or self-care (01) ==
PROVIDERS: PCP Family Medicine; Visit Provider Surgery
PROC: 0FT44ZZ Resection of Gallbladder, Percutaneous Endoscopic Approach (ICD-10-PCS; CPT 47562; principal; 2022-06-13 12:30)
DX: K80.10 Calculus of gallbladder with chronic cholecystitis without obstruction (principal); I10 Essential (primary) hypertension; E03.9 Hypothyroidism, unspecified; E78.2 Mixed hyperlipidemia; G47.33 Obstructive sleep apnea (adult) (pediatric); M06.09 Rheumatoid arthritis without rheumatoid factor, multiple sites; E66.9 Obesity, unspecified; Z68.38 Body mass index [BMI] 38.0-38.9, adult; Z79.82 Long term (current) use of aspirin; Z79.84 Long term (current) use of oral hypoglycemic drugs
CPT/HCPCS: 47562; 36415; 80048; 80076; 82150; 83690; 86850; 86900; 86901; 88304; 93005; A9270; C1713; J0330; J0690; J1100; J1885; J2250; J2405; J2704; J2710; J3010; J7120

== ENCOUNTER → 2022-07-02 12:24 | Outpatient (CLI) | payer MEDICARE, SELFPAY ==
--- NOTE | ~2022-07-02 | MM_ITS ---
EXAMINATION: MM screening yael BI w akiko HISTORY: Screening mammogram TECHNIQUE: Craniocaudal and mediolateral oblique 3-D tomosynthesis images were obtained and synthetic 2-D images were generated. CAD analysis was submitted and interpreted. COMPARISON: 05/25/2020, 03/27/2019, 01/29/2018 BREAST PARENCHYMAL COMPOSITION:The breasts are almost entirely fatty FINDINGS: No suspicious mass, calcification, or architectural distortion are identified in either rosario ast to suggest malignancy. There has been no suspicious interval change. IMPRESSION: No mammographic evidence of malignancy. Recommend routine screening mammography in one year. BI-RADS Category 1: Negative Reviewed, dictated and finalized at location .
== END ==
PROVIDERS: PCP Family Medicine; Visit Provider Family Medicine
DX: Z12.31 Encounter for screening mammogram for malignant neoplasm of breast (principal)
CPT/HCPCS: 77063; 77067

== ENCOUNTER → 2022-07-02 12:28 | Outpatient (CLI) | payer MEDICARE, SELFPAY ==
--- NOTE | ~2022-07-02 | XR_ITS ---
EXAM: XR foot RT standing 2V, XR foot LT standing 2V DATE: 07/02/2022 13:53 HISTORY: M06.09 - Rheumatoid arthritis without rheumatoid factor, ... . COMPARISON: None available. FINDINGS: Normal mineralization. No fracture or dislocation. No lytic or blastic lesion. Moderate na rrowing and osteophytosis in the bilateral tarsometatarsal joints and first MTP joints. Mild scattere d osteoarthritic change in multiple joints of the toes and the bilateral ankle joints. Bilateral plan tar enthesopathy. Bilateral bunionectomy changes. Screw fixation of the right second metatarsal head. Posttraumatic arthritis and/or postsurgical change in the right second MTP joint. No erosion or elijah osteal change. Soft tissues within normal limits. IMPRESSION: Moderate polyarticular osteoarthritis. Reviewed, dictated and finalized at location K. IMPRESSION: Moderate polyarticular osteoarthritis.
--- NOTE | ~2022-07-02 | XR_ITS ---
EXAM: XR hand BI arthritis min 3V DATE: 07/02/2022 13:53 HISTORY: M06.09 - Rheumatoid arthritis without rheumatoid factor, ... . COMPARISON: None available. FINDINGS: Decreased mineralization. Severe narrowing and gull wing deformities of the DIP and PIP jordi ints of the fingers and the bilateral thumb interphalangeal joints. Severe degenerative change in the bilateral trapeziometacarpal joints. Moderate degenerative change at the bilateral second and third MCP joints Calcified loose joint body in the medial aspect of the left wrist. No fracture or dislocat ion. Joint subluxations at the bilateral third PIP joints. 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 Reviewed, dictated and finalized at location K.
== END ==
PROVIDERS: PCP Family Medicine; Visit Provider Internal Medicine
DX: M06.09 Rheumatoid arthritis without rheumatoid factor, multiple sites (principal); M15.9 Polyosteoarthritis, unspecified
CPT/HCPCS: 73130; 73620

== ENCOUNTER → 2022-10-01 10:39 | Outpatient (CLI) | payer MEDICARE, SELFPAY ==
--- NOTE | ~2022-10-01 | DEXA_ITS ---
Bone Density Report Name: TREVON BARR Age: 72 Sex: Female Ethnicity: White Date of : 1950 Indication: osteopenia; parental hip fracture; height loss; postmenopausal Referring Provider: CANDELARIO RIVERA Study: Bone densitometry was performed. Exam Date: October 01, 2022 Accession number: [id number] Bone Density: Region BMD T-score Z-score Classification AP Spine (L1, L2) 0.805 -1.6 0.5 Osteopenia Femoral Neck (Left) 0.800 -0.4 1.5 Normal Total Hip (Left) 1.013 0.6 2.2 Normal Femoral Neck (Right) 0.697 -1.4 0.6 Osteopenia Total Hip (Right) 0.982 0.3 2.0 Normal Total Hip Mean 0.998 0.5 2.1 Normal World Health Organization criteria for BMD impression classify patients as: Normal (T-score at or above -1.0), Osteopenia (T-score between -1.0 and -2.5), or Osteoporosis (T-score at or below -2.5). 10-year Fracture Risk(1): Major Osteoporotic Fracture 13% Hip Fracture 3.8% Reported Risk Factors: [place] (), Neck BMD=0.697, BMI=41.2, parental fracture (1) FRAX(R) Version 3.08. Fracture probability calculated for an untreated patient. Fracture probability may be lower if the patient has received treatment. Previous Exams: Region Exam Age BMD T-score BMD Change BMD Change Date g/cm2 vs Baseline vs Previous AP Spine(L1, L2) 10/01/2022 72 0.805 -1.6 0.004 0.007 01/29/2018 68 0.798 -1.6 -0.003 -0.012 09/03/2014 64 0.811 -1.5 0.010 0.055* 02/15/2010 60 0.755 -2.0 -0.045 -0.021 12/06/2006 56 0.777 -1.8 -0.024 -0.029 12/11/2004 54 0.806 -1.6 0.005 0.005 11/19/2002 52 0.801 -1.6 Total Hip(Left) 10/01/2022 72 1.013 0.6 0.072 0.004 01/29/2018 68 1.010 0.6 0.068 -0.066* 09/03/2014 64 1.075 1.1 0.134 0.143* 02/15/2010 60 0.933 -0.1 -0.009 0.011 12/06/2006 56 0.921 -0.2 -0.020 -0.088 12/11/2004 54 1.009 0.5 0.067 0.067 11/19/2002 52 0.941 0.0 Total Hip(Right) 10/01/2022 72 0.982 0.3 0.065 -0.006 01/29/2018 68 0.988 0.4 0.071 -0.063* 09/03/2014 64 1.050 0.9 0.133 0.123* 02/15/2010 60 0.927 -0.1 0.010 -0.003 12/06/2006 56 0.930 -0.1 0.013 -0.054 12/11/2004 54 0.984 0.3 0.067 0.067 11/19/2002 52 0.917 -0.2
== END ==
PROVIDERS: PCP Family Medicine; Visit Provider Family Medicine
DX: M81.0 Age-related osteoporosis without current pathological fracture (principal); M85.88 Other specified disorders of bone density and structure, other site; M85.851 Other specified disorders of bone density and structure, right thigh
CPT/HCPCS: 77080

== ENCOUNTER → 2022-12-14 08:53 | Outpatient (CLI) | payer MEDICARE, SELFPAY ==
--- NOTE | ~2022-12-14 | MR_ITS ---
MRI of the right hand CLINICAL HISTORY: Pain, synovitis TECHNIQUE: Axial T1-weighted, T2 fat-sat, and T1 fat-sat images, coronal T1-weighted and T2 fat-sat i mages, and sagittal T1-weighted and T2 fat-sat images were performed. Following intravenous administr ation of 20 cc MultiHance gadolinium, T1-weighted fat-sat imaging was performed in the axial and sagi ttal planes. FINDINGS: There is severe joint space narrowing with central erosions involving all of the proximal a nd distal interphalangeal joints of the fingers. There is moderate osteoarthritic change of the inter phalangeal joint of the thumb. There is severe osteoarthritic change of the first carpometacarpal mega nt. There are probable multiple small erosions scattered in the carpus, especially in the lunate, sca phoid, and capitate. No acute fracture evident. Collateral ligaments appear intact. Flexor and extensor tendons appear int act. Intrinsic musculature of the hand is unremarkable. No soft tissue mass or fluid collection evide nt. IMPRESSION: Findings compatible with severe erosive osteoarthritis diffusely involving the proximal and distal in terphalangeal joints in the fingers. Scattered erosions in the carpus, as detailed above, which may be related to erosive osteoarthritis a s well. Correlate clinically for other inflammatory arthropathy. Advanced osteoarthritis of the first carpal metacarpal joint. Moderate osteoarthritis of the interpha langeal joint of the thumb. Reviewed, dictated and finalized at [facility]. IMPRESSION: Findings compatible with severe erosive osteoarthritis diffusely involving the proximal and distal interphalangeal joints in the fingers. Scattered erosions in the carpus, as detailed above, which may be related to er osive osteoarthritis as well. Correlate clinically for other inflammatory arthr opathy. Advanced osteoarthritis of the first carpal metacarpal joint. Moderate osteoart hritis of the interphalangeal joint of the thumb.
--- NOTE | ~2022-12-14 | MR_ITS ---
MRI of the left hand Clinical history: Pain, synovitis TECHNIQUE: Axial T1-weighted, T2 fat-sat, T1 fat-sat, coronal T1-weighted and T2 fat-sat images, and sagittal T1-weighted and T2 fat-sat images were performed. Following intravenous administration of 20 cc MultiHance gadolinium, T1-weighted fat-sat imaging was performed in the axial and sagittal planes . FINDINGS: There is severe joint space narrowing with central erosive changes involving the distal and proximal interphalangeal joints of the second through fifth digits, consistent with erosive osteoart hritis. There is moderate osteoporosis arthritis of the interphalangeal joint of the thumb. There is severe osteoporosis arthritis of the first carpal metacarpal joint. Suggestion of small scattered ero sions in the carpus, especially involving the scaphoid, lunate, and capitate. No significant joint ef fusion seen. There is amorphous marrow edema in the third metacarpal Benign-appearing simple cystic l esion present at the distal third proximal phalangeal shaft, presumably reactive. Flexor and extensor tendons appear intact. Intrinsic musculature of the hand is unremarkable. No soft tissue mass or fluid collection seen. IMPRESSION: Findings consistent with severe erosive osteoarthritis diffusely involving the proximal and distal in terphalangeal joints of the second through fifth digits. Moderate to advanced osteoarthritis of the interphalangeal joint of the thumb and the first carpal me tacarpal joint. Probable scattered small erosions in the carpal bones, as detailed above, which could related to eros lazaro osteoarthritis. Correlate for other inflammatory arthropathy. Reviewed, dictated and finalized at location . IMPRESSION: Findings consistent with severe erosive osteoarthritis diffusely involving the proximal and distal interphalangeal joints of the second through fifth digits. Moderate to advanced osteoarthritis of the interphalangeal joint of the thumb a nd the first carpal metacarpal joint. Probable scattered small erosions in the carpal bones, as detailed above, which could related to erosive osteoarthritis. Correlate for other inflammatory arth ropathy.
== END ==
PROVIDERS: PCP Family Medicine; Visit Provider Internal Medicine
DX: M19.042 Primary osteoarthritis, left hand (principal); M19.041 Primary osteoarthritis, right hand
CPT/HCPCS: 73220; A9577

== ENCOUNTER 2023-06-06 11:09 | Outpatient (CLI) | payer MEDICARE, SELFPAY ==
--- NOTE | ~2023-06-06 | XR_ITS ---
Clinical Indication: Nonspecific reaction to cell-mediated immunity PA and lateral views of the chest: Comparison: None Findings: The lungs are clear, without evidence of focal consolidation or pleural effusion. Cardiome diastinal silhouette is within normal limits. Bones and soft tissues are unremarkable. Impression: Normal chest. Reviewed, dictated and finalized at location . Impression: Normal chest.
== END 2023-06-06 11:10 | disposition home or self-care (01) ==
PROVIDERS: PCP Family Medicine; Visit Provider Internal Medicine
DX: R76.12 Nonspecific reaction to cell mediated immunity measurement of gamma interferon antigen response without active tuberculosis (principal)
CPT/HCPCS: 71046

== ENCOUNTER 2024-02-14 14:08 | Outpatient (CLI) | payer MEDICARE, SELFPAY ==
--- NOTE | ~2024-02-14 | XR_ITS ---
EXAMINATION: XR shoulder RT min 2V DATE: 02/14/2024 14:20 INDICATION: Right shoulder pain. TECHNIQUE: 5 views of right shoulder were obtained. COMPARISON: None. FINDINGS: There is superior subluxation of humeral head with narrowing of the subacromial space, cons istent with rotator cuff tear. There is remodeling of the undersurface of acromion, consistent with c uff arthropathy. No fracture. There is severe osteoarthritis of glenohumeral joint and mild osteoarth ritis of acromioclavicular joint. IMPRESSION: 1. Chronic right rotator cuff tear with cuff arthropathy. 2. Polyarticular osteoarthritis. Reviewed, dictated and finalized at location A. WASHER BUSSER
== END 2024-02-14 14:09 | disposition home or self-care (01) ==
PROVIDERS: PCP Family Medicine; Visit Provider Nurse Practitioner Family
DX: M75.101 Unspecified rotator cuff tear or rupture of right shoulder, not specified as traumatic (principal); M19.011 Primary osteoarthritis, right shoulder
CPT/HCPCS: 73030

== ENCOUNTER 2024-07-02 15:41 | Outpatient (CLI) | payer MEDICARE, SELFPAY ==
--- NOTE | ~2024-07-02 | MM_ITS ---
EXAMINATION: MM screening yael BI w akiko HISTORY: Screening TECHNIQUE: Craniocaudal and mediolateral oblique 3-D tomosynthesis images were obtained and synthetic 2-D images were generated. CAD analysis was submitted and interpreted. COMPARISON: Comparison to multiple prior studies sequentially, with oldest reviewed study dated 10/12. BREAST PARENCHYMAL COMPOSITION: Not dense: There are scattered areas of fibroglandular density. FINDINGS: There is no evidence of suspicious mass, calcification, or architectural distortion to sugg est malignancy in either breast. There has been no suspicious interval change. IMPRESSION: 1. No mammographic evidence of malignancy. 2. Recommend routine screening mammography in one year. BI-RADS Category 1: Negative Reviewed, dictated and finalized at location A.
== END 2024-07-02 15:42 | disposition home or self-care (01) ==
LOC: MICIMG 15:42
PROVIDERS: PCP Family Medicine; Visit Provider Nurse Practitioner Family
DX: Z12.31 Encounter for screening mammogram for malignant neoplasm of breast (principal)
CPT/HCPCS: 77063; 77067

== ENCOUNTER 2024-12-22 11:14 | Emergency (ER) | payer MEDICARE, SELFPAY ==
--- NOTE | ~2024-12-22 | CT_ITS ---
EXAMINATION: CT lumbar spine wo con DATE: 12/22/2024 12:44 INDICATION: Trauma with pelvic and right hip pain TECHNIQUE: Computed tomography (CT) of the lumbar spine was performed without intravenous contrast. Automated exposure control and iterative reconstruction technique were employed. The dose-length product was 708.35 mGy-cm. COMPARISON: None FINDINGS: 2 mm retrolisthesis L2 on L3. 6 mm anterolisthesis L4 on L5. 6 mm right lateral listhesis . L3 on L4. Prior L4 laminectomy and instrumented L4-L5 posterior spinal fusion with bilateral vertical claudia and pedicle screw fixation. There is also solid anterior fusion across the disc space at this level without instrumentation. Vertebral body heights are normal. No fractures in the lumbar spine. There is nondisplaced fracture with buckling of the anterior cortex at the lateral aspect of the right sacral ala. Severe disc height loss with degenerative endplate changes at L3-L4 and L5-S1. Mild disc height loss at T10- T11, L1-L2 and L2-L3. Small sliding-type hiatal hernia. Cholecystectomy clips at gallbladder fossa. There is paravertebral soft tissues are unremarkable. Mild osteoarthritis at the bilateral sacroiliac joints. The following disc levels are specifically discussed: T11-T12: Disc is mildly bulging. There is mild bilateral facet joint osteoarthritis. There is no neural foraminal stenosis. There is minimal central canal stenosis. T12-L1: Disc is bulging. There is moderate right and moderate left facet joint osteoarthritis. There is no neural foraminal stenosis. There is mild central canal stenosis. L1-L2: Disc is bulging. There is mild bilateral facet joint osteoarthritis. There is mild right and mild to moderate left neural foraminal stenosis. There is mild central canal stenosis. L2-L3: Disc is bulging. There is mild left and moderate right facet joint osteoarthritis. There is moderate left and mild to moderate right neural foraminal stenosis. There is mild central canal stenosis. L3-L4: Tiny posterior endplate osteophytes. There is severe bilateral facet joint osteoarthritis. There is moderate bilateral neural foraminal stenosis. There is mild central canal stenosis. L4-L5: Disc space is fused. Posterior decompression L4 laminectomy and posterior spinal fusion. There is no neural foraminal stenosis. There is no central canal stenosis. L5-S1: Disc is bulging. There is severe bilateral facet joint osteoarthritis. There is mild bilateral neural foraminal stenosis. There is no central canal stenosis. IMPRESSION: 1. Nondisplaced right sacral ala fracture with buckling along the anterior cortex. 2. Severe and lower lumbar spondylosis with anterior spinal fusion and instrumented posterior spinal fusion at L4-L5. No acute osseous abnormality in the lumbar spine. Reviewed, dictated and finalized at location A. IMPRESSION: 1. Nondisplaced right sacral ala fracture with buckling along the anterior pauline ex. 2. Severe and lower lumbar spondylosis with anterior spinal fusion and instrume nted posterior spinal fusion at L4-L5. No acute osseous abnormality in the lumb ar spine.
--- NOTE | ~2024-12-22 | CT_ITS ---
EXAMINATION: CT pelvis wo con DATE: 12/22/2024 12:45 INDICATION: Pelvic and right hip pain post trauma TECHNIQUE: High resolution computed tomography (CT) of the [place] was performed without intravenous contrast. Additional sagittal and coronal reconstructions were performed. Automated exposure control and iterative reconstruction technique were employed. The dose-length product was 529.26 mGy-cm. COMPARISON: 12/08/2014 FINDINGS: Nondisplaced fracture at the lateral aspect of the right sacral ala with buckling of the anterior cortex. 3 mm displacement of a fracture extends across the right inferior pubic ramus. Nondisplaced fracture extending across the medial left superior pubic ramus into the left pubic body. No evident fracture of the left inferior pubic ramus. Additional nondisplaced fracture at the junction of the right superior pubic ramus and the anterior right acetabulum. The extent and orientation of the fracture difficult to determine, unclear where there is extension into the right acetabulum. Small amount of likely physiologic free fluid in the cul-de-sac. Bladder, uterus, bilateral adnexa and visualized bowels are unremarkable. No pathologically enlarged pelvic or inguinal lymphadenopathy. Severe lower lumbar spondylosis with L4 laminectomy, L4-L5 anterior spinal fusion without instrumentation and instrumented L4-L5 posterior spinal fusion with bilateral vertical claudia and pedicle screw fixation. IMPRESSION: 1. Mildly displaced fracture of the right inferior pubic ramus and nondisplaced fractures of the right sacral ala, right superior pubic ramus extending into the right pubic body and at the junction of the right superior pubic ramus and anterior right acetabulum. Reviewed, dictated and finalized at location A. IMPRESSION: 1. Mildly displaced fracture of the right inferior pubic ramus and nondisplaced fractures of the right sacral ala, right superior pubic ramus extending into t he right pubic body and at the junction of the right superior pubic ramus and a nterior right acetabulum.
[2024-12-22 11:32] VITALS: BP 105/51; PULSE 75; RESP 24; TEMP 36.9; O2SAT 100
--- NOTE | 2024-12-22 11:45 | ED.GENADULT ---
HPI - General Adult General Chief complaint: Fall Stated complaint: fell last night. R hip pain Time Seen by Provider: 12/22/24 11:16 History of Present Illness HPI narrative: [age] old female presents to the emergency department for evaluation for right hip pain. Patient reports she was walking down stairs caring two large bins when she missed the last step and landed on her right side. Patient did injure her right hip but was able to ambulate after the injury. Patient reports this morning she did have a near syncopal episode due to pain and breath holding while trying to walk. Patient reports right hip pain that does radiate across her pelvis. Patient also reports low back pain. Patient denies striking head denies loss of consciousness. Patient does have prior history of hypertension, low back pain, metabolic syndrome, restless leg Related Data Home Medications ?Medication ?Instructions ?Recorded ?Confirmed ?Last Taken ?Type melatonin 10 mg capsule 10 mg PO PRN PRN Insomnia 02/12/20 07/27/24 07/13/20 History aspirin 81 mg tablet 162 mg PO DAILY 07/01/20 07/27/24 07/13/20 History Lactobacillus 1 cap PO DAILY 05/26/21 07/27/24 Unknown History acidophilus-Bifidobac.animalis 2.5 billion cell capsule (Daily Probiotic) acetaminophen 650 mg 650 mg PO Q12H PRN Pain 05/26/21 07/27/24 Unknown History tablet,extended release Held on 06/13/22. Instructions: Resume on 06/22/22. Hold while taking Percocet which has Tylenol in it. 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 History of cataract surgery History of adenoidectomy (~1958) History of tonsillectomy (~1958) History of tubal ligation (~1979) History of back surgery (~2012) Family History Family History Mother , age 78 Hypertension Kidney failure Congestive heart failure Father , age 76 Diabetes mellitus Hypertension Lung cancer Alcoholism Heart disease Grandparent Breast cancer Heart disease Daughter Smoker Son Smoker Other Carcinoma of colon Family history of arthritis Social History Social History Smoking status: Never smoker Second hand tobacco smoke exposure: No Alcohol intake: current Drinks per week: 2 Substance use: never Substance use type: does not use Lack of Transportation: No Lack of Food: Never True Current Housing: I Have Housing Concerned About Future Housing: No Difficulty Paying Gas/Electric Bills: No Difficulty Paying for Meds: No Currently Unemployed: No Education: Bachelor's Degree Difficulty w/ Childcare or Family Care: No Living arrangements: with family Occupation/Education: retired 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 HEAD: normocephalic, atraumatic. EYES: PERRLA/EOMI, conjunctivae clear. NOSE: Normal no drainage EARS:TMS clear with good light reflex. THROAT: Pharynx clear, no exudate. NECK: Supple. No adenopathy, no masses. RESPIRATORY: Airway patent, respirations nonlabored. Clear to auscultation bilaterally, no rales, rhonchi, wheezing. CARDIOVASCULAR: Regular rate and rhythm without murmurs rubs or gallops. ABDOMINAL: Soft, nontender, nondistended, normal bowel sounds MUSCULOSKELETAL: Moves all extremities. Strength/ROM intact, No edema, No calf tenderness. NEURO: Alert. Cranial nerves II through XII intact. Grossly intact SKIN: Warm, dry. Normal Color Course Vital Signs Vital signs: Vital Signs Temperature 98.4 F 12/22/24 11:32 Pulse Rate 75 12/22/24 11:32 Respiratory Rate 24 H 12/22/24 11:32 Blood Pressure 105/51 L 12/22/24 11:32 Pulse Oximetry 100 12/22/24 11:32 Oxygen Delivery Room Air 12/22/24 11:32 Temperature 98.2 F 12/22/24 15:12 Pulse Rate 80 12/22/24 15:12 Respiratory Rate 20 12/22/24 15:12 Blood Pressure 105/51 L 12/22/24 11:32 Pulse Oximetry 100 12/22/24 15:12 Oxygen Delivery Room Air 12/22/24 11:32 Medical Decision Making MDM Narrative Medical decision making narrative: 74-year-old female presents emergency department for evaluation for low back pain. CT does show evidence of a sacral fracture. Patient has been using a walker to ambulate. Patient was provided additional medication for pain control for home. Patient was comfortable plan for discharge home and close outpatient follow-up with Orthopedics. Patient was also educated on reasons to return to the emergency department. All questions concerns were addressed. Differential Diagnosis Differential Diagnosis: Pelvic fracture, lumbar fracture, hip fracture, hip strain, hip contusion Vital Signs Vital Signs: Vital Signs Temperature 98.4 F 12/22/24 11:32 Pulse Rate 75 12/22/24 11:32 Respiratory Rate 24 H 12/22/24 11:32 Blood Pressure 105/51 L 12/22/24 11:32 Pulse Oximetry 100 12/22/24 11:32 Oxygen Delivery Room Air 12/22/24 11:32 Temperature 98.2 F 12/22/24 15:12 Pulse Rate 80 12/22/24 15:12 Respiratory Rate 20 12/22/24 15:12 Blood Pressure 105/51 L 12/22/24 11:32 Pulse Oximetry 100 12/22/24 15:12 Oxygen Delivery Room Air 12/22/24 11:32 Imaging Data Radiologist's impression: Impressions Lumbar Spine CT 12/22/24 13:39 IMPRESSION: 1. Nondisplaced right sacral ala fracture with buckling along the anterior cortex. 2. Severe and lower lumbar spondylosis with anterior spinal fusion and instrumented posterior spinal fusion at L4-L5. No acute osseous abnormality in the lumbar spine. Pelvis CT 12/22/24 14:10 IMPRESSION: 1. Mildly displaced fracture of the right inferior pubic ramus and nondisplaced fractures of the right sacral ala, right superior pubic ramus extending into the right pubic body and at the junction of the right superior pubic ramus and anterior right acetabulum. Discharge Plan Discharge Clinical Impression: Closed sacral fracture, Closed pelvic fracture Patient Disposition: Home Condition: Stable Instructions: Antibiotic Form, Sacral Fracture (ED) Additional Instructions: Tramadol for pain control. Flexeril for muscle spasm. Utilize a walker for ambulation. Have close follow-up with Orthopedics. If you have any worsening symptoms and please call or return to the emergency department. Patient Language: Bangladeshi Prescriptions: New tramadol 50 mg tablet 50 mg PO Q6H PRN (Reason: pain) Qty: 14 0RF cyclobenzaprine 10 mg tablet 10 mg PO BID PRN (Reason: muscle spasm) Qty: 14 0RF No Action melatonin 10 mg capsule 10 mg PO PRN PRN (Reason: Insomnia) aspirin 81 mg Tablet 162 mg PO DAILY sennosides [senna] 8.6 mg Tablet 8.6 mg PO DAILY PRN (Reason: Constipation) acetaminophen 650 mg Tablet Extended Release 650 mg PO Q12H PRN (Reason: Pain) turmeric root extract 500 mg Capsule 500 mg PO DAILY Daily Probiotic 2.5 billion cell Capsule 1 cap PO DAILY hydrochlorothiazide 25 mg tablet See Rx Instructions .ROUTE .COMPLEX Qty: 90 1RF Dose Instruction: Take 1 tablet by mouth once daily Rx Instructions: Take 1 tablet by mouth once daily levothyroxine [Synthroid] 88 mcg tablet 88 mcg PO DAILY Qty: 90 1RF lisinopril 10 mg tablet See Rx Instructions .ROUTE .COMPLEX Qty: 90 1RF Dose Instruction: Take 1 tablet by mouth once daily Rx Instructions: Take 1 tablet by mouth once daily rosuvastatin 10 mg tablet See Rx Instructions .ROUTE .COMPLEX Qty: 90 1RF Dose Instruction: TAKE 1 TABLET BY MOUTH EVERY DAY Rx Instructions: TAKE 1 TABLET BY MOUTH EVERY DAY folic acid 1 mg tablet 1 mg PO DAILY Qty: 90 1RF Patient Comments: TAKES ON FRIDAYS citalopram 20 mg tablet See Rx Instructions .ROUTE .COMPLEX Qty: 90 1RF Dose Instruction: Take 1 tablet by mouth once daily Rx Instructions: Take 1 tablet by mouth once daily methotrexate sodium 2.5 mg tablet See Rx Instructions .ROUTE .COMPLEX Qty: 84 1RF Dose Instruction: TAKE 7 TABLETS BY MOUTH ONCE A WEEK Patient Comments: TAKES ON MONDAYS Rx Instructions: TAKE 7 TABLETS BY MOUTH ONCE A WEEK meloxicam 15 mg tablet 15 mg PO DAILY Qty: 90 1RF sulfacetamide sodium 10 % drops 2 drp ophthalmic (eye) Q4H Qty: 5 1RF semaglutide 2 mg/dose (8 mg/3 mL) pen injector 2 mg subcut WEEKLY Qty: 3 3RF famotidine 40 mg tablet 40 mg PO QHS Qty: 90 1RF Follow-up/Referrals: Obi Noriega MD [Primary Care Provider, Family Practice] Parveen Arevalo MD [Physician, Orthopedics]
--- OUTSIDE RECORDS SUMMARY | 2024-12-22 11:45 | XMS_ITS | Clinical Summary ---
Author Organization [facility] Address [address] [place] [address] Phone Care Team Providers Care Pulverizer Name Role Phone Obi Noriega MD Primary Care Provider [phone] Allergies No known active allergies Medications citalopram (CELEXA) 20 mg Oral tablet Take 20 mg by mouth daily. Active rosuvastatin (CRESTOR) 10 mg Oral tablet Take 10 mg by mouth daily. Active levothyroxine (SYNTHROID) 100 mcg Oral tablet Take 100 mcg by mouth daily recreation instructor. Active lisinopril (PRINIVIL) 10 mg Oral tablet Take 10 mg by mouth daily. Active aspirin (LAWANDA) 81 mg Oral Tab Take 81 mg by mouth. Active methyclothiazi de (ENDURON) 2.5 mg Oral Tab Take 2.5 mg by mouth daily. 4 tabs once a week Active folic acid (FOLVITE) 1 mg Oral tablet Take 1 mg by mouth daily. 5 tabs 3 days after methyltrexate Active alendronate (FOSAMAX) 70 mg Oral tablet Take 70 mg by mouth every 7 days. empty stomach before other meds,with 8oz of water, stay upright 30 min Active famotidine (PEPCID) 20 mg Oral tablet Take 20 mg by mouth 1 time daily as needed. Active diazepam (VALIUM) 5 mg Oral tablet Take 1 Tab by mouth every 8 hours as needed for Spasm. 90 Tab 0 2 Active oxyCODONE-acet aminophen (PERCOCET) 5-325 mg Oral tablet Take 1 Tab by mouth every 4 hours as needed for Pain, Moderate (For Pain Scale 4-6). 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 Gender Identity Not on file Sexual Orientation Not on file Occupation Industry Job Start Date Job End Date Not on file Not on file Not on file Not on file Last Filed Vital Signs Vital Sign Reading Time Taken Comments Blood Pressure 120/59 09/17/2011 5:00 AM CDT Pulse 73 09/17/2011 5:00 AM CDT Temperature 36.9 C (98.5 F) 09/17/2011 5:00 AM CDT Respiratory Rate 16 09/17/2011 5:00 AM CDT Oxygen Saturation 100% 09/17/2011 5:00 AM CDT Inhaled Oxygen Concentration - - Weight 105.7 kg (233 lb) 09/14/2011 6:25 AM CDT Height 160 cm (5' 3) 09/06/2011 10:42 AM CDT Body Mass Index 41.27 09/06/2011 10:42 AM CDT Plan of Treatment Health Maintenance Due Date Last Done Comments DTAP/TDAP/TD VACCINES (1 - Tdap) 1969 BREAST CANCER SCREENING 1990 COLORECTAL SCREENING 1995 Colorectal Cancer Screening 1995 FIT-DNA Q 3 years 1995 FIT/FOBT Q 1 year 1995 Flex Sig/CT Colonography Q 5 years 1995 PNEUMOCOCCAL VACCINE 50+ YEARS (1 of 1 - PCV) 01/16/20 00 ZOSTER VACCINE (1 of 2) 01/16/2000 OSTEOPOROSIS SCREENING 2015 INFLUENZA VACCINE (#1) 2024 RSV VACCINE (60+ or ) (1 - 1-dose 75+ series) 2025 Medical Devices Implanted Type Area Human Services Worker Device Identifier Shelf Expiration Date Model / Serial / Lot Sealant Floseal 10ml [id number] - [id number] Implanted:Qty: 2 on 09/14/2011 by Abelino Tirado MD at [facility] Biological N/A: Spine Lumbar CLEMONS- BIOSCIENCE 09/21/2012 [id number] / / [id number] Infuse Protein Kit [id number] - [id number] Implanted:Qty: 1 on 09/14/2011 by Abelino Tirado MD at [facility] Biological N/A: Spine Lumbar MEDTR[employer]IC- SOFAMOR DANEK 11/23/2013 [id number] / / [id number] Mtf Luminary T-Plif Spacer 8mm [id number] Implanted:Qty: 1 on 09/14/[address] [facility] Bone N/A: Spine Lumbar 10/10/2013 [id number] / [id number] / Bahman Xpdm 5.5 Ti Prebnt 40mm 72-040 - [id number] Implanted:Qty: 2 on 09/14/[address] [facility] Bahman Bilateral : Spine Lumbar J&J- DEPUY SPINE INC 0 / / Description:load # 25 steril ized 08-12-2011 Setscrew Inner - [id number] Implanted:Qty: 4 on 09/14/[address] [facility] Screw Bilateral : Spine Lumbar J&J- DEPU[employer] SPINE INC 0 / / Description:Load # 25 steril ized 09-12-2011 Screw Exp Poly 7x45mm - [id number] Implanted:Qty: 4 on 09/14/[address] [facility] Screw Bilateral : Spine Lumbar J&J- DEPU[employer]INE [employer] 5 / / Description:load #25 sterili zed 09-12-2011 Insurance [employer] OPEN ACCESS Advance Directives For more information, please contact: [phone] * Full Code (Latest Code Status on File) Date Activated Date Inactivated Comments 09/14/2011 7:18 PM 09/17/2011 12:48 PM * Full Code Date Activated Date Inactivated Comments 09/14/2011 6:26 AM 09/14/2011 7:18 PM Care Teams Pulverizer Relationship Specialty Start Date End Date Obi Noriega MD PCP - General Family Practice 07/25/11
--- OUTSIDE RECORDS SUMMARY | 2024-12-22 11:45 | XMS_ITS | Clinical Summary ---
Author Organization [facility] [employer] Address [address] [place] [address] Care Team Providers Care Extrusion Operator Name Role Phone Obi Noriega MD Primary Care Provider [phone] Source Comments [facility] [employer],[facility]-owned [facility] and [facility] Practices is amultiple site organization consisting of ambulatory clinics and hospital sitesin [place], [place], [place] and [place]. This disclosure is being madepursuant to the Care Everywhere program and may not contain all information available regarding this patient. Last updated 17.[facility] [employer] Allergies Active Allergy Reactions Criticality Noted Date Comments Relafen Other Low 03/16/2009 Visual changes Medications * Be aware that medications may not be up to date on this document. Alwaysverify current medications with the patient. levothyroxine (SYNTHROID) 100 MCG tablet Take 100 mcg by mouth daily. Active FOSAMAX 70 MG TABS Take 70 mg by mouth every 7 days before meal. Active aspirin 81 MG tablet Take 81 mg by mouth. 2 TABS OD Active TYLENOL PM EXTRA STRENGTH PO Take 500 Tabs by mouth at bedtime. Active citalopram (CELEXA) 20 MG tablet Take 20 mg by mouth daily. Active lovastatin (MEVACOR) 20 MG tablet Take 20 mg by mouth at bedtime. Active meloxicam (MOBIC) 15 MG tablet Take 15 mg by mouth once daily. Active folic acid (FOLVITE) 1 MG tabletIndicatio ns:Osteoarthrit is Take 5 Tabs by mouth every 7 days. Take 3 days after Methotrexate 60 Tab 3 2 Active methotrexate 2.5 MG tabletIndicatio ns:Osteoarthrit is,Seronegative arthritis Take 4 Tabs by mouth every 7 days. 48 Tab 3 2 Active Active Problems Problem Noted Date Diagnosed Date Seronegative arthritis 03/16/2009 Overview (10/23/2010): Dx per Dr. Mccain 03/2008. Presented to Dr. Lucas 2004; treated with Feldene. Trial of MTX; felt vastly improved. 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 Gender Identity Not on file Sexual Orientation Not on file Last Filed Vital Signs Vital Sign Reading Time Taken Comments Blood Pressure 138/80 07/18/2011 4:29 PM CDT Pulse 60 07/18/2011 4:29 PM CDT Temperature - - Respiratory Rate 16 10/25/2008 12:03 PM CDT Oxygen Saturation - - Inhaled Oxygen Concentration - - Weight 106.1 kg (234 lb) 07/18/2011 4:29 PM CDT Height 160 cm (5' 3) 10/25/2008 12:03 PM CDT Body Mass Index 41.45 10/25/2008 12:03 PM CDT Plan of Treatment Health Maintenance Due Date Last Done Comments BONE DENSITY TESTING 1950 COLOGUARD (AGES 45-75) - COL ON CA SCREENING 1950 COLON MONITORING 1950 COLONOSCOPY - COLON CA SCREENING 1950 CT COLONOGRAPHY - COLON CA SCREENING 1950 Colorectal Cancer Screening 1950 FIT - COLON CA SCREENING 1950 FLEX SIG - COLON CA SCREENING 1950 MAMMOGRAM 1950 HEPATITIS C SCREENING 01/11/1968 DTAP/TDAP/TD VACCINES (1 - Tdap) 1969 PNEUMOCOCCAL VACCINE 50+ (1 of 1 - PCV) 01/16/2000 ZOSTER VACCINE (1 of 2) 01/16/2000 Respiratory Syncytial Virus (RSV) Vaccine Pt: or over 60 yrs (1 - Risk 60-74 years 1-dose series) 2010 DEPRESSION SCREENING 03/25/2024 COVID-19 VACCINE (1 - 2023-2 5 season) 2024 INFLUENZA VACCINE (#1) 2024 HEPATITIS B VACCINE Aged Out No longe r eligible based on patient's age to complete this topic HIB VACCINE Aged Out No longer eligi ble based on patient's age to complete this topic HPV VACCINE Aged Out No longer eligi ble based on patient's age to complete this topic MENINGOCOCCAL (Group B) VACC INE SHARED DECISION-MAKING Aged Out No longer eligibl e based on patient's age to complete this topic MENINGOCOCCAL GROUPS A/C/Y/W VACCINE Aged Out No longer eligible b ased on patient's age to complete this topic [facility] Care Teams Extrusion Operator Relationship Specialty Start Date End Date Obi Noriega MD [address] [place] [address] [phone] PCP - General 04/17/08
--- OUTSIDE RECORDS SUMMARY | 2024-12-22 11:45 | XMS_ITS | Clinical Summary ---
Author Organization [facility] [address] [place] [id number] Care Team Providers Care Tax Processor Name Role Phone Obi Noriega MD Primary Care Provider [phone] [phone] Allergies Active Allergy Reactions Criticality Noted Date Comments Other Other (See comments) Low 05/30/2017 Medications acetaminophen (TylenoL) 325 mg tablet Active citalopram (CeleXA) 20 mg tablet Active folic acid (FOLVITE) 1 mg tablet Take 1 mg by mouth daily Active hydroCHLOROthi azide (HYDRODIURIL) 25 mg tablet 12/08/19 21 Active lisinopriL (PRINIVIL,ZEST RIL) 10 mg tablet Active meloxicam (MOBIC) 15 mg tablet Active methotrexate 2.5 mg tablet 07/23/19 12 Active rosuvastatin (Crestor) 10 mg tablet Active metFORMIN (GLUCOPHAGE) 500 mg tablet Take 500 mg by mouth daily with breakfast Active aspirin 81 mg chewable tablet Take 1 tablet (81 mg total) by mouth daily Active famotidine (PEPCID) 40 mg tablet Take 1 tablet (40 mg total) by mouth daily Active L.acid-B.anima lis,bifidum-FO S 25 billion cell -100 mg capsule Take by mouth Active melatonin 10 mg tablet as needed Active senna (SENOKOT) 8.6 mg tablet Take 1 tablet by mouth as needed for constipation Active turmeric root extract 500 mg capsule Take by mouth Active levothyroxine (SYNTHROID) 88 mcg tablet Take 1 tablet (88 mcg total) by mouth daily 11/03/19 25 Active Ozempic 2 mg/dose (8 mg/3 mL) pen injector injection INJECT 2MG SUBCUTANEOUSLY ONCE WEEKLY 11/18/19 25 Active sulfacetamide (BLEPH-10) 10 % ophthalmic solution INSTILL 2 DROPS INTO EACH EYE EVERY 4 HOURS 11/17/19 25 Active alendronate (FOSAMAX) 70 mg tablet Take 70 mg by mouth once a week 025 Discontin ued(Patie nt Reported) levothyroxine (SYNTHROID) 100 mcg tablet Take 100 mcg by mouth 025 Discontin ued(Patie nt Reported) semaglutide 1 mg/0.2 mL syringe Inject 2 mg under the skin 025 Discontin ued(Patie nt Reported) Active Problems Problem Noted Date Diagnosed Date Pain of hand 05/30/2017 Seronegative arthritis 03/16/2009 Overview (01/26/2021): Dx per Dr. Mccain 03/2008. Presented to Dr. Lucas 2004; treated with Feldjules. Trial of MTX; felt vastly improved. Osteoporosis 04/17/2008 Osteoarthritis 04/17/2008 Overview (01/26/2021): 1st CMC shots 05/03 Hypothyroidism 04/17/2008 Hypercholesterolemia 04/17/2008 High blood pressure 04/17/2008 Encounters Date Type Department Care Team Description 12/01/2024 8:30 AM CDT Office Visit [facility] Medicine Orthopaedic Surgery [address] [facility] [address] [place] [address] [place] [id number] Josiah Mcguire MD Arthritis of carpometacarpal (CMC) joint of left thumb (Primary Dx) 09/28/2024 Telephone [facility] Medicine Rheumatology [address] [facility] [address] [place] [address] Susan He RMA from Last 3 Months Surgical History Surgery Date Site/Laterality Comments BUNIONECTOMY SPINAL FUSION CHOLECYSTECTOMY 05/23/2022 - 06/22/2022 ADENOIDECTOMY 03/25/1958 - 03/24/1959 TONSILLECTOMY 03/25/1958 - 03/24/1959 TUBAL LIGATION 03/25/1979 - 03/24/1980 BACK SURGERY 03/25/2012 - 03/24/2013 CATARACT EXTRACTION 2019 Medical History Medical History Date Comments Hypertension Hypercholesteremia Osteoporosis Osteoarthritis Sleep apnea 2005 GERD (gastroesophageal reflux disease) 2010 Family History Medical History Relation Name Comments Alcohol abuse Father Rudy Hendrix Family histor y of alcoholism - (Added by TW Conv) Arthritis Father Rudy Hendrix Family history of arthritis - (Added by TW Conv) COPD Father Rudy Hendrix Cancer Father Rudy Hendrix Family history of malignant neoplasm - (Added by TW Conv) Diabetes Father Rudy Hendrix Family history of diabetes mellitus - (Added by TW Conv) Heart disease Father Rudy Hendrix Family histor y of cardiac disorder - (Added by TW Conv) Hypertension Father Rudy Hendrix Family history of hypertension - (Added by TW Conv) Lung disease Father Rudy Hendrix Family history of lung disease - (Added by TW Conv) Alcohol abuse Mother Adele Hendrix Family history of alcoholism - (Added by TW Conv) Arthritis Mother Adele Hendrix Family history of arthritis - (Added by TW Conv) Cancer Mother Adele Hendrix Family history of malignant neoplasm - (Added by TW Conv) Diabetes Mother Adele Hendrix Family history of diabetes mellitus - (Added by TW Conv) Heart disease Mother Adele Hendrix Family history of cardiac disorder - (Added by TW Conv) Hypertension Mother Adele Hendrix Family history of hypertension - (Added by TW Conv) Lung disease Mother Adele Hendrix Family history of lung disease - (Added by TW Conv) Relation Name Status Comments Father Rudy Hendrix Mother Adele Hendrix Social History Tobacco Use Types Packs/Day Years Used Date Smoking Tobacco: Never Smokeless Tobacco: Never Tobacco Cessation:Counseling Given: Not Answered AUDIT-C Answer Date Recorded Q1: How often do you have a drink containing alc ohol? 2-4 times a month 09/14/2024 Average Number of Drinks Not on file 025 Q3: How often do you have si x or more drinks on one occasion? 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 Not on file Not on file Obstetrics History Last Filed Vital Signs Vital Sign Reading Time Taken Comments Blood Pressure 113/69 09/14/2024 12:51 PM CDT Pulse 59 09/14/2024 12:51 PM CDT Temperature 36.4 C (97.5 F) 09/14/2024 12:51 PM CDT Respiratory Rate - - Oxygen Saturation 99% 09/14/2024 12:51 PM CDT Inhaled Oxygen Concentration - - Weight 75.1 kg (165 lb 8 oz) 09/14/2024 12:51 PM CDT Height 156.2 cm (5' 1.5) 03/01/2021 9:18 AM TAX MANAGER Body Mass Index 30.76 03/01/2021 9:18 AM TAX MANAGER Plan of Treatment Health Maintenance Due Date Last Done Comments Breast Cancer Screening-Mammogram 1950 Colon Cancer Screening-Colonoscopy 1950 Depression Screening 1950 Fall Risk Assessment 1950 Osteoporosis Screening-Bone Density Scan 1950 DTaP/Tdap/Td Vaccine (1 - Tdap) 1961 Well Visit 65+ 2015 Pneumococcal vaccine 65+ (2 of 2 - PCV) 12/23/2019 12/22/2018 Covid-19 Vaccine (3 - Modern a risk series) 06/11/2020 05/14/2020, 04/14/2020 Influenza Vaccine (#1) 2024 0, 01/02/2019, 12/04/2017, Additional history exists Zoster Vaccine Completed 11/07/2020, 02/14/2020 Hepatitis B Screening Completed 09/14/2024 Hepatitis C Screening Completed 09/14/2024 Procedures Procedure Name Priority Date/Time Associated Diagnosis Comments HEPATITIS C ANTIBODY Routine 09/14/2024 2:40 PM CDT High risk medication use from Last 3 Months or Most Recently Relevant to Health Maintenance Results * Hepatitis C antibody Blood (09/14/2024 2:40 PM CDT) Hep C Ab Nonreactive Nonreactive Comment: Interpretive Data Nonreactive: Antibodies to HCV not detected. Does NOT exclude the possibility of recent exposure to HCV. Equivocal: Equivocal for HCV antibodies. Supplemental molecular testing will be automatically performed to determine infection status in accordance with current CDC screening recommendations. Reactive: Positive for HCV antibodies. This may represent current or past HCV infection. Supplemental molecular testing will be automatically performed to determine current infection status in accordance with current CDC screening recommendations. Interpretive data was last revised on 2019. Testing performed by: [facility], [facility], [place]., [address] Blood 09/14/2024 2:40 PM CDT 09/14/2024 6:09 PM CDT Elizabeth Hurst NP LAB MICROBIOLOGY - NERAL ORDERABLES Final Result [id number] [facility]. Department [place] [address] from Last 3 Months or Most Recently Relevant to Health Maintenance Insurance [facility] MEDICARE ADVANTAGE AETNA MEDICARE AETNA MEDICARE Care Teams Tax Processor Relationship Specialty Start Date End Date Obi Noriega MD PCP - General Family Medicine 12/23/18
[2024-12-22 15:12] VITALS: PULSE 80; RESP 20; TEMP 36.8; O2SAT 100
== END 2024-12-22 15:14 | disposition home or self-care (01) ==
PROVIDERS: Emergency Provider Emergency Medicine; PCP Family Medicine
DX: S32.19XA Other fracture of sacrum, initial encounter for closed fracture (principal); S32.591A Other specified fracture of right pubis, initial encounter for closed fracture; I10 Essential (primary) hypertension; E78.2 Mixed hyperlipidemia; E03.9 Hypothyroidism, unspecified; M06.09 Rheumatoid arthritis without rheumatoid factor, multiple sites; M19.071 Primary osteoarthritis, right ankle and foot; M17.0 Bilateral primary osteoarthritis of knee; G47.33 Obstructive sleep apnea (adult) (pediatric); Z90.49 Acquired absence of other specified parts of digestive tract; Z98.49 Cataract extraction status, unspecified eye; W10.9XXA Fall (on) (from) unspecified stairs and steps, initial encounter
CPT/HCPCS: 72131; 72192; 99284